=== PATIENT | female | born 1935 | race Caucasian/White ===

== ENCOUNTER 2017-11-10 11:18 | Outpatient (CLI) | payer MEDICARE, OTHER | END 2017-11-10 11:19 | disposition short-term general hospital (02) | LOC: EMS 11:18 | PROVIDERS: ATTEND Surgery | DX: R55 Syncope and collapse (principal); M54.5 Low back pain | CPT/HCPCS: A0425; A0427; A0888 ==

== ENCOUNTER 2018-01-31 11:47 | Outpatient (CLI) | payer MEDICARE, OTHER | END 2018-01-31 11:48 | disposition short-term general hospital (02) | LOC: EMS 11:47 | PROVIDERS: ATTEND Surgery | DX: R53.1 Weakness (principal); R55 Syncope and collapse | CPT/HCPCS: A0425; A0429; A0888 ==

== ENCOUNTER 2019-08-31 21:13 | Outpatient (CLI) | payer MEDICARE, OTHER | END 2019-08-31 21:14 | disposition critical access hospital (66) | LOC: EMS 21:13 | PROVIDERS: ATTEND Surgery | DX: R53.1 Weakness (principal); R41.0 Disorientation, unspecified | CPT/HCPCS: A0425; A0427 ==

== ENCOUNTER 2019-08-31 21:41 | Emergency (ER) | payer MEDICARE, OTHER ==
--- NOTE | 2019-08-31 22:14 | ED Physician Documentation ---
History of Present Illness - Stated complaint Stated Complaint: GLF - Chief complaint Chief Complaint: General - History obtained from History obtained from: Patient, Family, EMS - History of Present Illness Timing: Yesterday Pain level now: 0 - Additonal information Additional information: patient has dementia and thus limited ability to provide reliable HPI/ROS. Per EMS report and ED RN's d/w family, patient had a fall today, and has been exhibiting decreased activity since yesterday, spending more time in bed than her baseline and eating/drinking less than usual. Patient is awake, alert, oriented x 2 on my exam. She does not know why she is in ED and she denies feeling pain or any other symptoms. When I ask her if there's anything unusual that she is experiencing right now, she says "that I'm in the hospital". she does not recall falling nor the events that resulted in her being in the ED at this time Review of Systems Cardiac: denies: Chest pain / pressure, Palpitations Respiratory: denies: Dyspnea, Cough GI: denies: Abdominal Pain, Nausea, Vomiting : denies: Dysuria, Frequency Neurologic: denies: Generalized weakness, Focal weakness, Numbness PD PAST MEDICAL HISTORY - Past Medical History Past Medical History: Yes Cardiovascular: High cholesterol Neuro: Dementia Endocrine/Autoimmune: HyPOthyroidism - Present Medications Home Medications: Ambulatory Orders Medication Instructions Recorded Confirmed Aspirin [[place] Aspirin EC] 81 mg DAILY 08/31/19 08/31/19 Donepezil [Aricept] 5 mg DAILY 08/31/19 08/31/19 Levothyroxine Sodium [Synthroid] 100 mcg DAILY 08/31/19 08/31/19 Simvastatin 40 mg DAILY 08/31/19 08/31/19 Venlafaxine HCl [Venlafaxine HCl 150 mg DAILY 08/31/19 08/31/19 ER] Nitrofurantoin [Macrobid] 100 mg PO DAILY #7 capsule 09/01/19 - Allergies Allergies/Adverse Reactions: Allergies Allergy/AdvReac Type Severity Reaction Status Date / Time No Known Drug Allergies Allergy Verified 08/31/19 21:49 - Living Situation Living Situation: reports: With family Living Arrangement: reports: At home PD ED PE NORMAL - Vitals Vital signs reviewed: Yes - General General: No acute distress, Well developed/nourished, Other (awake, alert, orietned x 2 (does not know year). pleasant, conversant, NAD) - HEENT HEENT: Atraumatic, PERRL, EOMI, Moist mucous membranes - Neck Neck: No bony TTP - Cardiac Cardiac: RRR, No murmur - Respiratory Respiratory: No respiratory distress, Clear bilaterally - Abdomen Abdomen: Soft, Non tender - Derm Derm: Normal color, Warm and dry - Extremities Extremities: No edema - Neuro Neuro: artificial inseminator 2-12 intact, No motor deficit, No sensory deficit, Normal speech Eye Opening: Spontaneous Motor: Obeys Commands Verbal: Confused GCS Score: 14 Results - Vitals Vitals: Vital Signs - 24 hr 08/31/19 09/01/19 21:46 01:56 Temperature 35.5 C L 37.0 C Heart Rate 83 85 Respiratory 18 16 Rate Blood Pressure 138/75 H 134/66 H O2 Saturation 98 100 - Labs Labs: Laboratory Tests 08/31/19 08/31/19 08/31/19 21:50 21:50 21:50 WBC 9.7 RBC 5.00 Hgb 15.1 Hct 46.9 MCV 93.8 MCH 30.2 MCHC 32.2 RDW 13.7 Plt Count 307 MPV 9.5 Neut # (Auto) 7.1 H Lymph # (Auto) 1.9 [place] # (Auto) 0.5 Eos # (Auto) 0.1 Baso # (Auto) 0.1 Absolute Nucleated RBC 0.00 Nucleated RBC % 0.0 Sodium 140 Potassium 4.0 Chloride 105 Carbon Dioxide 24 Anion Gap 11.0 BUN 21 H Creatinine 0.9 Estimated GFR (MDRD) 60 L Glucose 158 H Lactic Acid Calcium 9.0 Total Bilirubin 0.7 AST 17 ALT < 10 L Alkaline Phosphatase 72 Total Creatine Kinase 24 CK-MB (CK-2) 1.1 Total Protein 7.1 Albumin 3.8 Globulin 3.3 Albumin/Globulin Ratio 1.2 Lipase 20 L Urine Color Urine Clarity Urine pH Ur Specific [place] Urine Protein Urine Glucose (UA) Urine Ketones Urine Occult Blood Urine Nitrite Urine Bilirubin Urine Urobilinogen Ur Leukocyte Esterase Urine RBC Urine WBC Ur Squamous Epith Cells Urine Bacteria Ur Microscopic Review Urine Culture Comments 08/31/19 08/31/19 22:50 23:45 WBC RBC Hgb Hct MCV MCH MCHC RDW Plt Count MPV Neut # (Auto) Lymph # (Auto) [place] # (Auto) Eos # (Auto) Baso # (Auto) Absolute Nucleated RBC Nucleated RBC % Sodium Potassium Chloride Carbon Dioxide Anion Gap BUN Creatinine Estimated GFR (MDRD) Glucose Lactic Acid 2.5 H Calcium Total Bilirubin AST ALT Alkaline Phosphatase Total Creatine Kinase CK-MB (CK-2) Total Protein Albumin Globulin Albumin/Globulin Ratio Lipase Urine Color YELLOW Urine Clarity HAZY Urine pH 7.0 Ur Specific [place] 1.020 Urine Protein TRACE Urine Glucose (UA) NEGATIVE Urine Ketones NEGATIVE Urine Occult Blood NEGATIVE Urine Nitrite POSITIVE H Urine Bilirubin NEGATIVE Urine Urobilinogen 0.2 (NORMAL) Ur Leukocyte Esterase SMALL H Urine RBC 0-5 Urine WBC 6-10 H Ur Squamous Epith Cells FEW Squamous Urine Bacteria Many H Ur Microscopic Review INDICATED Urine Culture Comments INDICATED PD MEDICAL DECISION MAKING - ED course Complexity details: reviewed results, re-evaluated patient, considered differential, d/w patient Departure - Departure Disposition: 01 Home, Self Care Clinical Impression: Urinary tract infection Qualifiers: Urinary tract infection type: acute cystitis Hematuria presence: without hematuria Qualified Code(s): N30.00 - Acute cystitis without hematuria Condition: Good Instructions: ED UTI Cystitis Female Follow-Up: Agustín Benson DO [Primary Care Provider] - Within 1 week Prescriptions: Nitrofurantoin [Macrobid] 100 mg PO DAILY #7 capsule Discharge Date/Time: 09/01/19 01:56
[2019-08-31] MEDS: SODIUM CHLORIDE 0.9% 1,000 ML IV STA (22:33)
[2019-08-31 22:48] LABS: BASOPHILS # (AUTO) 0.1 10^3/uL (0.0-0.1); BASOPHILS % (AUTO) 0.6 %; EOSINOPHILS # (AUTO) 0.1 10^3/uL (0.0-0.7); EOSINOPHILS % (AUTO) 0.7 %; HGB - HEMOGLOBIN 15.1 g/dL (12.0-16.0); LYMPHOCYTES # (AUTO) 1.9 10^3/uL (1.5-3.5); LYMPHOCYTES % (AUTO) 19.4 %; MEAN CORPUSCULAR HEMOGLOBIN 30.2 pg (27.0-31.0); MEAN CORPUSCULAR HGB CONC 32.2 g/dL (32.0-36.0); MEAN CORPUSCULAR VOLUME 93.8 fL (81.0-99.0); MEAN PLATELET VOLUME 9.5 fL (7.9-10.8); MONOCYTES # (AUTO) 0.5 10^3/uL (0.0-1.0); MONOCYTES % (AUTO) 5.2 %; NEUTROPHILS # (AUTO) 7.1 10^3/uL (1.5-6.6); NEUTROPHILS % (AUTO) 73.7 %; PLT - PLATELET COUNT 307 10^3/uL (130-450); RED CELL DISTRIBUTION WIDTH 13.7 % (12.0-15.0); WHITE BLOOD COUNT 9.7 x10^3/uL (4.8-10.8)
[2019-08-31 23:03] LABS: ALBUMIN 3.8 g/dL (3.2-5.5); ALBUMIN/GLOBULIN RATIO 1.2 (1.0-2.2); ALKALINE PHOSPHATASE 72 IU/L (42-121); ALT ALANINE AMINOTRANSFERASE < 10 IU/L (10-60); AST ASPARTATE AMINOTRANSFERASE 17 IU/L (10-42); BILIRUBIN,TOTAL 0.7 mg/dL (0.2-1.0); BUN - BLOOD UREA NITROGEN 21 mg/dL (6-20); CARBON DIOXIDE - CO2 24 mmol/L (21-32); CHLORIDE 105 mmol/L (101-111); CK- CREATINE KINASE 24 IU/L (22-269); CREATININE 0.9 mg/dL (0.4-1.0); GLUCOSE 158 mg/dL (70-100); LIPASE 20 U/L (22-51); SODIUM 140 mmol/L (135-145); TOTAL PROTEIN 7.1 g/dL (6.7-8.2)
[2019-08-31 23:58] LABS: BILIRUBIN,URINE NEGATIVE (NEGATIVE); GLUCOSE, URINE (UA) NEGATIVE (NEGATIVE); KETONES,URINE (UA) NEGATIVE (NEGATIVE); LEUKOCYTE ESTERASE, URINE SMALL (NEGATIVE); NITRITE,URINE POSITIVE (NEGATIVE); OCCULT BLOOD,URINE NEGATIVE (NEGATIVE); PROTEIN,URINE TRACE mg/dL (NEGATIVE); UROBILINOGEN,URINE 0.2 (NORMAL) E.U./dL (NORMAL)
[2019-08-31 23:59] LABS: CLARITY,URINE HAZY (CLEAR)
[2019-09-01 00:03] LABS: BACTERIA,URINE Many /HPF (None Seen); RBC,URINE 0-5 /HPF (0-5); SQUAMOUS EPITHELIAL CELL,UR FEW Squamous (<= Few)
[2019-09-01] MEDS: cefTRIAXone 1 GM in SODIUM CHLORIDE 0.9% MINIBAG 100 ML IV STA (00:32)
[2019-09-01 02:03] VITALS: BP 134/66
== END 2019-09-01 01:56 | disposition home or self-care (01) ==
LOC: EDUNIT# → ED 21:41
DX: N30.00 Acute cystitis without hematuria (principal); F03.90 Unspecified dementia, unspecified severity, without behavioral disturbance, psychotic disturbance, mood disturbance, and anxiety; Z91.81 History of falling; Z79.82 Long term (current) use of aspirin
CPT/HCPCS: 36415; 80053; 81001; 81003; 82550; 82553; 83605; 83690; 85025; 87086; 87181; 96361; 96365; 99284

== ENCOUNTER 2020-03-13 13:44 | Outpatient (CLI) | payer MEDICARE, OTHER | END 2020-03-13 13:45 | disposition home or self-care (01) | LOC: LAB 13:44 | PROVIDERS: ATTEND Family Medicine | DX: R53.83 Other fatigue (principal) | CPT/HCPCS: 36415; 85379 ==

== ENCOUNTER 2020-03-14 15:14 | Outpatient (CLI) | payer MEDICARE, OTHER ==
--- NOTE | 2020-03-14 16:13 | XRAY Report ---
PROCEDURE: Chest 2 View X-Ray INDICATIONS: ABNORMAL COAGULATION PROFILE TECHNIQUE: 2 view(s) of the chest. COMPARISON: None. FINDINGS: Surgical changes and devices: None. Lungs and pleura: No pleural effusions or pneumothorax. Lungs are clear. Mediastinum: Mediastinal contours are normal. Heart size is normal. Bones and chest wall: No suspicious bony abnormalities. Soft tissues appear unremarkable. IMPRESSION: Chest without acute cardiopulmonary abnormalities. Reviewed by: Palmer Trimble MD on 03/14/2020 4:11 PM PST Approved by: Palmer Trimble MD on 03/14/2020 4:11 PM PST Station ID: [id number]
== END 2020-03-14 15:15 | disposition home or self-care (01) ==
LOC: DI 15:14
PROVIDERS: ATTEND Internal Medicine
DX: R79.1 Abnormal coagulation profile (principal)
CPT/HCPCS: 71046

== ENCOUNTER 2020-03-15 17:09 | Outpatient (CLI) | payer MEDICARE, OTHER ==
[2020-03-15] MEDS ORDERED: IOVERSOL 320 100 ML VIAL IVP ONE (17:27)
[2020-03-15] MEDS: IOVERSOL 320 100 ML VIAL IVP ONE (18:27)
--- NOTE | 2020-03-15 19:37 | CT Report ---
PROCEDURE: ANGIO CHEST W/WO INDICATIONS: HYPOXEMIA CONTRAST: IV CONTRAST: Optiray 320 ml: 80 PO CONTRAST: *NO PO CONTRAST TECHNIQUE: After the administration of intravenous contrast, 2 mm thick sections acquired from the pulmonary api liliana to the posterior costophrenic angles. 3-dimensional maximum intensity projection (MIP) coronal a nd sagittal reformats were then acquired through the thorax. For radiation dose reduction, the follow ing was used: automated exposure control, adjustment of mA and/or kV according to patient size. COMPARISON: CXR 03/14/2020. FINDINGS: Image quality: Fair. Respiratory motion. Pulmonary arteries: Pulmonary arteries are normal in size, and demonstrate no intraluminal filling d efects to suggest central pulmonary embolism. Lungs and pleura: Right lower lobe pulmonary nodule measuring 4 mm, (6/131). Left upper lobe subpleur al pulmonary nodule measuring 4 mm, (6/122). Calcified granuloma. Mild streaky opacity at the left oma ng base. No pleural effusions or pneumothorax. Central and peripheral airways are patent. Mediastinum: Heart size is normal, without pericardial effusion. No mediastinal or hilar adenopathy . Thoracic aorta is normal in caliber and enhancement. Esophagus is normal in caliber, probable sma ll hiatal hernia. Bones and chest wall: No suspicious bony lesions. Chronic appearing L1 compression fracture. Ribs a nd thoracic spine appear intact throughout. Thyroid appears atrophic. No axillary or supraclavicula r adenopathy. Abdomen: Visualized upper abdominal solid organs appear normal in the early arterial phase of enhanc ement. IMPRESSION: Image quality is somewhat dictated by respiratory motion. 1. No central pulmonary embolism. 2. Mild atelectasis at the left lung base. No pleural effusion. 3. A few pulmonary nodules measuring 4 mm or less. 4. Chronic appearing L1 compression fracture. Reviewed by: Kurtis Lemus MD on 03/15/2020 7:36 PM PST Approved by: Kurtis Lemus MD on 03/15/2020 7:36 PM PST Station ID: [id number]
== END 2020-03-15 17:10 | disposition home or self-care (01) ==
LOC: DI 17:09
PROVIDERS: ATTEND Family Medicine
DX: J98.11 Atelectasis (principal); R91.8 Other nonspecific abnormal finding of lung field
CPT/HCPCS: 71275; Q9967

== ENCOUNTER 2020-03-23 18:24 | Outpatient (CLI) | payer MEDICARE, OTHER | END 2020-03-23 18:25 | disposition critical access hospital (66) | LOC: EMS 18:24 | PROVIDERS: ATTEND Surgery | DX: R55 Syncope and collapse (principal) | CPT/HCPCS: A0425; A0427 ==

== ENCOUNTER 2020-03-23 18:56 | Inpatient (IN) | payer MEDICARE, OTHER ==
[2020-03-23 19:22] LABS: BASOPHILS # (AUTO) 0.1 10^3/uL (0.0-0.1); BASOPHILS % (AUTO) 0.6 %; EOSINOPHILS # (AUTO) 0.2 10^3/uL (0.0-0.7); EOSINOPHILS % (AUTO) 1.9 %; HGB - HEMOGLOBIN 13.4 g/dL (12.0-16.0); LYMPHOCYTES # (AUTO) 1.7 10^3/uL (1.5-3.5); LYMPHOCYTES % (AUTO) 16.1 %; MEAN CORPUSCULAR HEMOGLOBIN 30.1 pg (27.0-31.0); MEAN CORPUSCULAR HGB CONC 32.8 g/dL (32.0-36.0); MEAN CORPUSCULAR VOLUME 91.7 fL (81.0-99.0); MEAN PLATELET VOLUME 8.7 fL (7.9-10.8); MONOCYTES # (AUTO) 0.6 10^3/uL (0.0-1.0); MONOCYTES % (AUTO) 5.2 %; NEUTROPHILS # (AUTO) 8.1 10^3/uL (1.5-6.6); NEUTROPHILS % (AUTO) 75.7 %; PLT - PLATELET COUNT 226 10^3/uL (130-450); RED BLOOD COUNT 4.45 10^6/uL (4.20-5.40); RED CELL DISTRIBUTION WIDTH 14.2 % (12.0-15.0); WHITE BLOOD COUNT 10.7 x10^3/uL (4.8-10.8)
[2020-03-23] MEDS ORDERED: SODIUM CHLORIDE 0.9% 1,000 ML IV STA ×2 (19:27→20:16)
[2020-03-23 19:35] LABS: ALBUMIN 3.6 g/dL (3.2-5.5); ALBUMIN/GLOBULIN RATIO 1.2 (1.0-2.2); BILIRUBIN,TOTAL 0.5 mg/dL (0.2-1.0); CALCIUM 8.9 mg/dL (8.5-10.3); CREATININE 0.9 mg/dL (0.4-1.0); TOTAL PROTEIN 6.6 g/dL (6.7-8.2)
--- NOTE | 2020-03-23 19:43 | ED Physician Documentation ---
History of Present Illness - Stated complaint Stated Complaint: DIZZY, NAUSEA, LOC - Chief complaint Chief Complaint: Neuro - History obtained from History obtained from: EMS - History of Present Illness Timing: Prior to arrival - Additonal information Additional information: 84-year-old female is brought to the emergency department for evaluation of a near syncopal event. At baseline the patient has dementia and is a very poor historian. Right now she reports that she knows she is at the hospital but does not know why. She denies that she has chest pain abdominal pain shortness of breath. I have spoken with the patient's granddaughter and care provider Betina. She reports to me that for nearly 3 years the patient has been having near syncopal events now with increasing frequency. These always occur after or during exertion. Betina denies that the patient is reporting chest pain or shortness of breath but she has learned to tell the signs that she is about to collapse. She denies that the patient has had any lapses in consciousness. She has not had any falls. Patient has been evaluated by her primary care provider for the recurrent near syncope recently. Undergo CT angio of the chest to evaluate for central pulmonary embolus. None was found. Granddaughter reports that the patient is ambulatory at baseline and typically uses a walker. Past medical history: Hypothyroidism, depression anxiety, hyperlipidemia, dementia. Meds: Synthroid 100 mics daily, statin 40 mg daily, venlafaxine 150 mg daily, donezepil 5 mg daily, aspirin 81 mg daily Review of Systems Unable to obtain: Dementia, Other (as per HPI; reviewed with caregiver betina) PD PAST MEDICAL HISTORY - Past Medical History Cardiovascular: High cholesterol Neuro: Dementia Endocrine/Autoimmune: HyPOthyroidism - Present Medications Home Medications: Ambulatory Orders Medication Instructions Recorded Confirmed Aspirin [[place] Aspirin EC] 81 mg DAILY 08/31/19 03/23/20 Donepezil [Aricept] 5 mg DAILY 08/31/19 03/23/20 Levothyroxine Sodium [Synthroid] 100 mcg DAILY 08/31/19 03/23/20 Simvastatin 40 mg DAILY 08/31/19 03/23/20 Venlafaxine HCl [Venlafaxine HCl 150 mg DAILY 08/31/19 03/23/20 ER] - Allergies Allergies/Adverse Reactions: Allergies Allergy/AdvReac Type Severity Reaction Status Date / Time No Known Drug Allergies Allergy Verified 08/31/19 21:49 - Social History Does the pt smoke?: No Smoking Status: Never smoker PD ED PE EXPANDED - General General: Alert, No acute distress - HEENT HEENT: PERRL - Neck Neck: Supple w/out meningeal sx. No: No tenderness - Cardiac Cardiac: Regular Rate, Regular Rhythm, Radial strong equal, Pedal strong equal, Cap refill < 2 sec. No: Murmur Present - Respiratory Respiratory: Clear to ausultation yeny. No: Distress, Labored - Abdomen Abdomen: Normal Bowel sounds. No: Tender to palpation - Derm Derm: Normal color, Warm and dry. No: Rash - Extremities Extremities: Normal - Neuro Neuro: Confused, CNII-XII intact, Normal speech - GCS Eye Opening: Spontaneous Motor: Obeys Commands Verbal: Oriented Total: 15 Results - Vitals Vitals: Vital Signs - 24 hr 03/23/20 03/23/20 03/23/20 18:58 19:16 20:18 Temperature 36.4 C L 36.4 C L Heart Rate 75 75 Heart Rate [ 77 Supine] Respiratory 18 18 Rate Blood Pressure 147/78 H 147/78 H Blood Pressure 131/67 H [Sitting] Blood Pressure 130/119 H [Standing] Blood Pressure 149/65 H [Supine] O2 Saturation 98 96 03/23/20 21:01 Temperature Heart Rate 83 Heart Rate [ Supine] Respiratory 16 Rate Blood Pressure 128/50 L Blood Pressure [Sitting] Blood Pressure [Standing] Blood Pressure [Supine] O2 Saturation 98 Oxygen O2 Source Room air - EKG (time done) 1857 Rate: Rate (enter#) (77) Rhythm: NSR [place]: LAD Intervals: Normal NC QRS: Normal Ischemia: Normal ST segments Compare to prior EKG: Old EKG unavailable Computer interpretation: Agree with computer - Labs Labs: Laboratory Tests 03/23/20 03/23/20 03/23/20 19:14 19:14 19:14 WBC 10.7 RBC 4.45 Hgb 13.4 Hct 40.8 MCV 91.7 MCH 30.1 MCHC 32.8 RDW 14.2 Plt Count 226 MPV 8.7 Neut # (Auto) 8.1 H Lymph # (Auto) 1.7 [place] # (Auto) 0.6 Eos # (Auto) 0.2 Baso # (Auto) 0.1 Absolute Nucleated RBC 0.00 Nucleated RBC % 0.0 Sodium 138 Potassium 3.9 Chloride 103 Carbon Dioxide 24 Anion Gap 11.0 BUN 30 H Creatinine 0.9 Estimated GFR (MDRD) 60 L Glucose 159 H Lactic Acid Calcium 8.9 Total Bilirubin 0.5 AST 20 ALT 17 Alkaline Phosphatase 52 Troponin I High Sens 4.9 Total Protein 6.6 L Albumin 3.6 Globulin 3.0 Albumin/Globulin Ratio 1.2 Lipase 19 L TSH Urine Color Urine Clarity Urine pH Ur Specific [place] Urine Protein Urine Glucose (UA) Urine Ketones Urine Occult Blood Urine Nitrite Urine Bilirubin Urine Urobilinogen Ur Leukocyte Esterase Urine RBC Urine WBC Urine WBC Clumps Ur Squamous Epith Cells Urine Bacteria Ur Microscopic Review Urine Culture Comments 03/23/20 03/23/20 03/23/20 19:14 19:14 19:47 WBC RBC Hgb Hct MCV MCH MCHC RDW Plt Count MPV Neut # (Auto) Lymph # (Auto) [place] # (Auto) Eos # (Auto) Baso # (Auto) Absolute Nucleated RBC Nucleated RBC % Sodium Potassium Chloride Carbon Dioxide Anion Gap BUN Creatinine Estimated GFR (MDRD) Glucose Lactic Acid 1.3 Calcium Total Bilirubin AST ALT Alkaline Phosphatase Troponin I High Sens Total Protein Albumin Globulin Albumin/Globulin Ratio Lipase TSH 3.17 Urine Color YELLOW Urine Clarity HAZY Urine pH 6.0 Ur Specific [place] 1.025 Urine Protein NEGATIVE Urine Glucose (UA) NEGATIVE Urine Ketones NEGATIVE Urine Occult Blood MODERATE H Urine Nitrite POSITIVE H Urine Bilirubin NEGATIVE Urine Urobilinogen 0.2 (NORMAL) Ur Leukocyte Esterase TRACE H Urine RBC 6-10 H Urine WBC >25 H Urine WBC Clumps PRESENT Ur Squamous Epith Cells RARE Squamous Urine Bacteria Many H Ur Microscopic Review INDICATED Urine Culture Comments INDICATED - Rads (name of study) CT head Radiology: Final report received (No mass or hemorrhage found but the ventricles are large in size when compared to the proportionally smaller cortical sulci and basilar since turned. 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 No suspicious bony lesions. Visualized ribs appear intact) PD MEDICAL DECISION MAKING - ED course Complexity details: reviewed results ED course: 84-year-old female is brought into the emergency department for evaluation of increasing episodes of near syncope without loss of consciousness over the last week. Most of this history was obtained by the patient's granddaughter as the patient has dementia as baseline. The patient underwent a CT angio of the chest last week and it did not show any large central pulmonary embolus. There was findings suggestive of atelectasis in the left lower lobe. The granddaughter reports that patient has been having near syncopal events every day for the last week and this always occurs after exertion. Here in the emergency department we review her labs and find that there is no leukocytosis elevated lactic acid. She is noted to be dehydrated with BUN of 30. We did do bedside interrogation of her inferior vena cava and it was found to be point 6 2 cm likely indicating that she has depleted 2-1/2 to 3 L. She was given 2 L of IV fluids here in the emergency department. The most significant findings on her evaluation today is the finding of a new left lower lobe pneumonia on chest x-ray. This is in comparison to the CT scan completed 1 week ago. In addition to that she does have a urinary tract infection. The urine obtained today was via catheterization. Patient is not septic. She has no leukocytosis, fever or elevation in lactic acid. She is normotensive and otherwise hemodynamically stable Her PSI score is 84 Which is a risk class of 4. The recommendation is for inpatient hospitalization and observation. I did discuss our clinical findings on exam today with the patient's granddaughter. She indicates to me that the patient is a full code including CPR and intubation. I have discussed this case with Dr. Yanez who agrees to bring the patient in for further evaluation and treatment of her pneumonia urinary tract infection and dehydration with near syncope Departure - Departure Disposition: ED Place in Observation Clinical Impression: Cystitis, Near syncope, Dehydration Pneumonia Qualifiers: Pneumonia type: due to unspecified organism Laterality: left Lung location: lower lobe of lung Qualified Code(s): J18.9 - Pneumonia, unspecified organism Dementia Qualifiers: Dementia type: unspecified type Dementia behavioral disturbance: without behavioral disturbance Qualified Code(s): F03.90 - Unspecified dementia without behavioral disturbance
[2020-03-23 19:50] LABS: BILIRUBIN,URINE NEGATIVE (NEGATIVE); GLUCOSE, URINE (UA) NEGATIVE (NEGATIVE); KETONES,URINE (UA) NEGATIVE (NEGATIVE); LEUKOCYTE ESTERASE, URINE TRACE (NEGATIVE); NITRITE,URINE POSITIVE (NEGATIVE); OCCULT BLOOD,URINE MODERATE (NEGATIVE); PROTEIN,URINE NEGATIVE (NEGATIVE); UROBILINOGEN,URINE 0.2 (NORMAL) E.U./dL (NORMAL)
[2020-03-23 20:05] LABS: CLARITY,URINE HAZY (CLEAR)
[2020-03-23 20:06] LABS: BACTERIA,URINE Many /HPF (None Seen); SQUAMOUS EPITHELIAL CELL,UR RARE Squamous (<= Few); WBC CLUMPS,URINE PRESENT
--- NOTE | 2020-03-23 20:24 | XRAY Report ---
PROCEDURE: Shoulder 2 View LT INDICATIONS: pain TECHNIQUE: 3 views of the shoulder were acquired. COMPARISON: None. FINDINGS: Bones: No fractures or dislocations. No suspicious bony lesions. Visualized ribs appear intact. Soft tissues: No suspicious soft tissue calcifications. IMPRESSION: Mild AC joint osteoarthritis. No fracture or dislocation found. Reviewed by: Felipe Sweeney MD on 03/23/2020 8:22 PM [facility] Approved by: Felipe Sweeney MD on 03/23/2020 8:22 PM [facility] Station ID: [id number]
--- NOTE | 2020-03-23 20:27 | CT Report ---
PROCEDURE: HEAD WO INDICATIONS: near syncope TECHNIQUE: Noncontrast 4.5 mm thick angled axial sections acquired from the foramen magnum to the vertex. For r adiation dose reduction, the following was used: automated exposure control, adjustment of mA and/or kV according to patient size. COMPARISON: None. FINDINGS: Image quality: Excellent. CSF spaces: Basal cisterns are patent. No extra-axial fluid collections. Ventricles are mildly enl arged in size and shape when compared to the overlying cortical sulci.. Brain: No midline shift. No intracranial masses or hemorrhage. Lao-white matter interface is norm al. Skull and face: Calvarium and visualized facial bones are intact, without suspicious lesions. Sinuses: Visualized sinuses and mastoids are clear. IMPRESSION: No mass or hemorrhage found but the ventricles are large in size when compared to the pr oportionately smaller cortical sulci and basilar cisterns. This may indicate communicating hydrocepha kayla, and also partially obstructive hydrocephalus conceivably could be present. Follow-up by elective MR scanning may be warranted. It would be especially beneficial if a prior head CT or brain MRI coul d be obtained for review to establish chronicity of this appearance. Reviewed by: Felipe Sweeney MD on 03/23/2020 8:25 PM PST Approved by: Felipe Sweeney MD on 03/23/2020 8:25 PM PST Station ID: [id number]
--- NOTE | 2020-03-23 20:28 | XRAY Report ---
PROCEDURE: Chest 1 View X-Ray INDICATIONS: Chest Pain TECHNIQUE: One view of the chest was acquired. COMPARISON: FINDINGS: Surgical changes and devices: None. Lungs and pleura: No pleural effusions or pneumothorax. Lungs are abnormal with what appears to be a left lung base pneumonia pattern. Mediastinum: Mediastinal contours appear normal. Heart size is normal. Bones and chest wall: No suspicious bony lesions. Overlying soft tissues appear unremarkable. IMPRESSION: Left lower lobe pneumonia with asymmetric opacification of the retrocardiac left lung base. Reviewed by: Felipe Sweeney MD on 03/23/2020 8:27 PM PST Approved by: Felipe Sweeney MD on 03/23/2020 8:27 PM PST Station ID: [id number]
[2020-03-23] MEDS ORDERED: levoFLOXacin 750 MG/150 ML 750 MG/150 ML BAG IV STA (21:11)
[2020-03-23] MEDS ORDERED: ACETAMINOPHEN 325 MG TABLET PO PRN (21:17)
[2020-03-23] MEDS ORDERED: ONDANSETRON ODT 4 MG TABLET TL PRN (21:17)
[2020-03-23] MEDS ORDERED: SODIUM CHLORIDE FLUSH 0.9% 10 ML SYRINGE IVP PRN (21:17)
--- NOTE | 2020-03-23 21:25 | HISTORY & PHYSICAL EXAMINATION ---
Chief Complaint - Chief Complaint Chief Complaint: Almost passed out History of Present Illness - Admitted From Admitted From:: Home - History Obtained From Records Reviewed: Yes History obtained from: ER Provider, Family, EMR Exam Limitations: Patient has dementia and is a poor historian. - History of Present Illness HPI Comment/Other: This is a 84-year-old female with a past medical history significant for hypothyroidism, dementia who presents today from home after she nearly passed out. Most of the history is obtained from her granddaughter, Betina and the ER provider, given the patient has advanced dementia and is a poor historian. Betina tells me that over the past few years, her grandmother has been having episodes of near syncope. This has progressed over the past few months and so they have been seeking medical attention on an outpatient basis. She states they saw her primary care provider and underwent a CT scan. She states that during one of her office visits, she was found to have some hypoxia with ambulation. She states that her doctor was planning to order an ultrasound of her legs to evaluate for blood clots. Betina tells me that the patient gets overheated at times and then gets some heavy breathing before feeling like she is going to pass out. She states she has never passed out. The patient does not complain of any dyspnea or chest pain. She has not had any fevers. She tel ls me she has been diagnosed with multiple urinary tract infections in the past. The patient today states that she knows she is here at [facility]. She is not sure exactly why she is here. She states she does feel dizzy and lightheaded at times. She denies ever passing out. Reports no chest pain or dyspnea. Denies nausea, vomiting, abdominal pain. Reports no dysuria, urgency, frequency. She reports feeling fatigued. Denies any weakness. In the emergency department, she was found to be afebrile with temperature of 36.4 C. Her heart rate was in the 70s. Blood pressure is 147/78. Orthostatics were negative. She was not tachypneic and saturating well on room air. Labs were unremarkable except for BUN of 30. Her urinalysis did reveal pyuria with positive nitrites and leukocyte Estrace. Her EKG did not suggest ischemia and her initial troponin was negative. Chest x-ray was concerning for possible left lower lobe infiltrate. CT angiogram from last week showed no pulm onary embolism but did reveal mild left lower lobe atelectasis. She was given Levaquin IV in the emergency department and 2 L of IV fluid. Given her pneumonia severity index score was 94, medicine was consulted for admission. I did discuss goals of care with the patient's grandchild, Betina. She states the patient is a full code for the time being but she is planning to discuss this with her POA, Jennifer. I did contact Jennifer with me that she is actually a financial power of trust and estates attorney. She states that the patient's son, Leeroy, is her medical power of trust and estates attorney. I asked for Leeroy's number given it is not in the computer but she asked me why I needed. I told her to discuss CODE STATUS of the patient. She states that they have been discussing this and they want to discuss it further with the patient over this weekend as they want to ask her what she would want. This feels the patient would likely want to be DNR. Jennifer also feels the patient can make her own decision regarding CODE STATUS despite her dementia. I did asked the patient if she would want to be a full code and she said no. She would like to be DNR. History - Past Medical History Cardiovascular: reports: High cholesterol Neuro: reports: Dementia Endocrine/Autoimmune: reports: HyPOthyroidism - Family & Social History Family History Comment/Other: Her family tells me the patient has no significant family history. The patient also tells me that her parents were healthy. Living arrangement: At home Living Situation: With family Social History Notes: Patient lives at home with her granddaughter, Betina. Reports no smoking or alcohol use. Meds/Allgy - Home Medications Home Medications: Ambulatory Orders Medication Instructions Recorded Confirmed Aspirin [Mineral Aspirin EC] 81 mg DAILY 08/31/19 03/23/20 Donepezil [Aricept] 5 mg DAILY 08/31/19 03/23/20 Levothyroxine Sodium [Synthroid] 100 mcg DAILY 08/31/19 03/23/20 Simvastatin 40 mg DAILY 08/31/19 03/23/20 Venlafaxine HCl [Venlafaxine HCl 150 mg DAILY 08/31/19 03/23/20 ER] - Allergies Allergies/Adverse Reactions: Allergies Allergy/AdvReac Type Severity Reaction Status Date / Time No Known Drug Allergies Allergy Verified 08/31/19 21:49 Review of Systems - Constitutional Constitutional: reports: Fatigue. denies: Fever, Chills, Weakness, Poor appetite - Ears, Nose & Throat Ears, Nose & Throat: denies: Nasal discharge, Nasal congestion - Cardiovascular Cariovascular: reports: Lightheadedness. denies: Palpitations, Chest pain, Edema, Syncope, Exertional dyspnea, Decr. exercise tolerance - Respiratory Respiratory: denies: Cough, SOB at rest, SOB with exertion - Gastrointestinal Gastrointestinal: denies: Abdominal pain, Diarrhea, Nausea, Vomiting - Genitourinary Genitourinary: denies: Dysuria, Frequency, Urgency - Neurological Neurological: reports: Dizziness. denies: General weakness, Focal weakness, Numbness - All Other Systems All Other Systems: reports: Other (Review of systems is limited given the patient's underlying dementia.) Prior Level of Functionality: She lives with her grandchild, Betina. She ambulates with a walker at baseline. Betina tells me that someone is always with her when she is ambulating due to her risk of fall. She is normally oriented to location when she is at home otherwise she will not know where she is. She does recognize some of her family. She will not know the year or month. Exam - Vital Signs Reviewed Vital Signs: Yes Vital Signs: Vital Signs x48h Temp Pulse Pulse Resp BP BP BP 03/23/20 21:01 83 16 128/50 L 03/23/20 20:18 77 131/67 H 130/119 H 03/23/20 19:16 36.4 C L 75 18 147/78 H 03/23/20 18:58 36.4 C L 75 18 147/78 H BP Pulse Ox 03/23/20 21:01 98 03/23/20 20:18 149/65 H 03/23/20 19:16 96 03/23/20 18:58 98 - Physical Exam General Appearance: positive: No acute distress, Alert Eyes Bilateral: positive: Normal inspection, Conjunctivae nml ENT: positive: ENT inspection nml Neck: positive: Nml inspection Respiratory: positive: No respiratory distress. negative: Wheezes, Rales Cardiovascular: positive: Regular rate & rhythm, No murmur. negative: Tachycardia, Systolic murmur Abdomen: positive: Non-tender, No distention. negative: Tenderness Skin: positive: Warm, Dry Extremities: positive: Full ROM, No pedal edema Neurologic/Psychiatric: positive: Motor nml, Disoriented to time, Other (She knows she is at the hospital but is not sure why. She knows it is March but not what year. She recognizes Thanksgiving was over a week ago and Rajani is next. No focal deficits on exam.). negative: Disoriented to person, Disoriented to place, Facial droop, Slurred/abnml speech Conclusion/Plan - Problem List (1) Left lower lobe pneumonia Conclusion/Plan: Chest x-ray today was concerning for a left lower lobe infiltrate. She had a CT angiogram last week which did show some mild atelectasis in left lung base. She has no white count and is not tachypneic or hypoxic. Given her presentation and x-ray findings, it was felt to be best placed in observation for IV antibiotics and to treat this for possible pneumonia. Her pneumonia severity index is 94. We will place her on Levaquin given she may have a urinary tract infection as well. Follow-up Covid PCR. Monitor respiratory status. (2) Urinary tract infection Conclusion/Plan: Her urinalysis is abnormal with positive nitrates, trace leukocyte Estrace, pyuria, and many bacteria. Although she does not have any symptoms, given her presentation with presyncope and dehydration and given her baseline dementia being a poor historian, we will treat empirically. Prior urine cultures have grown pansensitive E. coli. We will place her on Levaquin for the urinary tract infection as well as pneumonia. Qualifiers: Urinary tract infection type: acute cystitis Hematuria presence: without hematuria Qualified Code(s): N30.00 - Acute cystitis without hematuria (3) Near syncope Conclusion/Plan: Suspect this is likely due to dehydration. This may have been exacerbated by the possible pneumonia and urinary tract infection. Her BUN is mildly elevated and her IVC was quite collapsed per the ER provider. Orthostatics were negative in the emergency department. EKG does not suggest ischemia and troponin is normal. She received 2 L of IV fluids. We will continue her on gentle IV hydration overnight. We will monitor her on telemetry. Trend troponin. Although she has no obvious murmur on exam, will obtain echocardiogram. (4) Hypothyroidism Conclusion/Plan: Continue Synthroid. (5) Dehydration Conclusion/Plan: There is concern for dehydration given her mildly elevated BUN and a collapsible IVC per the ER provider. She received 2 L of IV fluids in the emergency department. Continue her on gentle IV hydration overnight. (6) Dementia Conclusion/Plan: Continue home medications. Qualifiers: Dementia type: unspecified type Dementia behavioral disturbance: without behavioral disturbance Qualified Code(s): F03.90 - Unspecified dementia without behavioral disturbance - Lab Results Lab results reviewed: Yes Fish Bones: 03/23/20 19:14 03/23/20 19:14 - Diagnostic Imaging Results Diagnostic Imaging Results: positive: Final report reviewed - EKG Results EKG Interpreted Independently: Yes EKG Findings: EKG shows sinus rhythm without ST segment changes. Low voltage is noted. Core Measures - Anticipated LOS I expect patient to be DC'd or transferred within 96 hours.: Yes - Issues Hospital Issues and Management Plan: 84-year-old female with history of dementia presents with ongoing near syncope found to be dehydrated with a possible urinary tract infection and pneumonia in the emergency department. She does not appear to be septic. She is also not hypoxic. Will place in observation for IV antibiotics and IV fluids. - DVT/VTE - Prophylaxis VTE/DVT Device ordered at admit?: Yes VTE/DVT Prophylaxis med ordered at admit?: Yes
[2020-03-23] MEDS ORDERED: LACTATED RINGERS 1,000 ML IV SCH (22:00)
[2020-03-23 22:24] LABS: C. PNEUMONIAE- RESP PCR PANEL NOT DETECTED
[2020-03-24] MEDS: SODIUM CHLORIDE FLUSH 0.9% 10 ML SYRINGE IVP SCH ×3 (00:37→16:53)
[2020-03-24] MEDS: ZINC OXIDE 20% OINT 30 GM TUBE TOP PRN ×2 (04:17→06:30)
[2020-03-24 05:48] LABS: BASOPHILS % (AUTO) 0.5 %; EOSINOPHILS % (AUTO) 0.5 %; HGB - HEMOGLOBIN 11.2 g/dL (12.0-16.0); LYMPHOCYTES # (AUTO) 1.2 10^3/uL (1.5-3.5); LYMPHOCYTES % (AUTO) 19.1 %; MEAN CORPUSCULAR HEMOGLOBIN 29.5 pg (27.0-31.0); MEAN CORPUSCULAR HGB CONC 31.3 g/dL (32.0-36.0); MEAN CORPUSCULAR VOLUME 94.2 fL (81.0-99.0); MEAN PLATELET VOLUME 9.4 fL (7.9-10.8); MONOCYTES # (AUTO) 0.6 10^3/uL (0.0-1.0); MONOCYTES % (AUTO) 9.2 %; NEUTROPHILS # (AUTO) 4.5 10^3/uL (1.5-6.6); NEUTROPHILS % (AUTO) 70.4 %; PLT - PLATELET COUNT 194 10^3/uL (130-450); RED CELL DISTRIBUTION WIDTH 14.2 % (12.0-15.0); WHITE BLOOD COUNT 6.4 x10^3/uL (4.8-10.8)
[2020-03-24 05:57] LABS: CALCIUM 8.7 mg/dL (8.5-10.3); CREATININE 0.8 mg/dL (0.4-1.0)
[2020-03-24] MEDS: LEVOTHYROXINE 100 MCG TABLET PO SCH (06:27)
[2020-03-24] MEDS: ATORVASTATIN 10 MG TABLET PO SCH (08:21)
[2020-03-24] MEDS: ENOXAPARIN 40 MG/0.4 ML SYRINGE SUBQ SCH (08:21)
[2020-03-24] MEDS: DONEPEZIL 5 MG TABLET PO SCH (08:21)
[2020-03-24] MEDS: ASPIRIN EC 81 MG TABLET PO SCH (08:21)
[2020-03-24] MEDS: VENLAFAXINE ER 75 MG CAPSULE PO SCH (08:21)
[2020-03-24] MEDS: cefTRIAXone 1 GM in SODIUM CHLORIDE 0.9% MINIBAG 100 ML IV SCH (11:05)
[2020-03-24] MEDS: AZITHROMYCIN INJ 500 MG in SODIUM CHLORIDE 0.9% 250 ML IV SCH (11:51)
--- NOTE | 2020-03-24 12:25 | PHARMACY PROGRESS NOTE ---
- Best Possible Medication History Admit Date and Time: 03/23/202116 Processed by: Pharmacy Medication History completed: Yes Patient Interview: Pt unable to participate Secondary Source(s): Spouse/Significant other, Physician records, Pharmacy re cords, Insurance records As the person ultimately responsible for medication therapy, providers are able to order a medication from an existing home medication list in [facility] via the "Reconcile Routine" prior to Confirmation of that medication by support representative. Such practice is discouraged except when the physician, in their clinical judgment, deems that a medical need exists for a medication without regard to previous use.
--- NOTE | 2020-03-24 14:10 | PROVIDER PROGRESS NOTE ---
Assessment/Plan - Problem List (1) Left lower lobe pneumonia Assessment/Plan: 03/24 pt has cough and the patient become some confused, We will switch antibiotics from Levaquin to azithromycin and Rocephin For community acquired pneumonia. Blood culture is pending. COVID-19 PCR is negative (2) Urinary tract infection UA culture show positive for E. coli. Sensitivity study is pending. We will continue Rocephin (3) Near syncope 3 time troponin are negative, patient deny chest pain, palpitation, SOB. EKG review sinus rhythm, echo is pending. It is Not clear etiology for patient's nearly syncope now. (4) Hypothyroidism Conclusion/Plan: Continue Synthroid. (5) Dehydration Conclusion/Plan: 03/24 resolved There is concern for dehydration given her mildly elevated BUN and a collapsible IVC per the ER provider. She received 2 L of IV fluids in the emergency department. Continue her on gentle IV hydration overnight. (6) Dementia Conclusion/Plan: Continue home medications. - Current Meds Current Meds: Current Medications Generic Name Dose Route Start Last Admin Trade Name Halina PRN Reason Stop Dose Admin Aspirin 81 mg 03/24/20 09:00 03/24/20 08:21 Aspirin Ec 81 Mg Tablet PO 81 mg DAILY TIM Administration Atorvastatin Calcium 20 mg 03/24/20 09:00 03/24/20 08:21 Atorvastatin 10 Mg Tablet PO 20 mg DAILY TIM Administration Donepezil HCl 5 mg 03/24/20 09:00 03/24/20 08:21 Donepezil 5 Mg Tablet PO 5 mg DAILY TIM Administration Enoxaparin Sodium 40 mg 03/24/20 09:00 03/24/20 08:21 Enoxaparin 40 Mg/0.4 Ml Syringe SUBQ 40 mg DAILY TIM Administration Azithromycin 500 mg/ Sodium 250 mls @ 250 mls/hr 03/24/20 09:00 03/24/20 11:51 Chloride IV 03/26/20 09:59 250 mls/hr DAILY TIM Administration Ceftriaxone Sodium 1 gm/ 100 mls @ 200 mls/hr 03/24/20 09:00 03/24/20 11:51 Sodium Chloride IV 03/28/20 09:29 Infused DAILY TIM Infusion Levothyroxine Sodium 100 mcg 03/24/20 07:00 03/24/20 06:27 Levothyroxine 100 Mcg Tablet PO 100 mcg QDAC TIM Administration Multi-Ingredient Ointment 1 applic 03/24/20 01:54 03/24/20 06:30 Zinc Oxide 20% Oint 30 Gm Tube TOP 1 applic PRN PRN Administration Skin Care Sodium Chloride 10 ml 03/24/20 01:00 03/24/20 08:21 Sodium Chloride Flush 0.9% 10 Ml Syringe IVP 10 ml 0100,0900,1700 TIM Administration Venlafaxine HCl 150 mg 03/24/20 09:00 03/24/20 08:21 Venlafaxine Er 75 Mg Capsule PO 150 mg DAILY TIM Administration - Lab Result Fish Bone Diagrams: 03/24/20 05:24 03/24/20 05:24 - Additional Planning My Orders: My Active Orders 03/24/20 08:47 CULTURE, BLOOD (NOTE DRAW #) [] Routine 03/24/20 08:58 Blood Culture [CULTURE, BLOOD #2] [] Urgent 03/24/20 09:00 Azithromycin Inj [Zithromax Inj] 500 mg Sodium Chloride 0.9% [Normal Saline 0.9%] 250 ml IV DAILY cefTRIAXone [Rocephin] 1 gm Sodium Chloride 0.9% Minibag [Normal Saline 0.9% Minibag] 100 ml IV DAILY 03/24/20 17:00 Saccharomyces Boulardii [Florastor] 250 mg PO BIDWM 03/25/20 05:00 BMP - BASIC METABOLIC PANEL [CHEM] DAILYLAB CBC - COMP BLD CT W/AUTO DIFF [HEME] DAILYLAB MAGNESIUM [CHEM] DAILYLAB 03/26/20 05:00 BMP - BASIC METABOLIC PANEL [CHEM] DAILYLAB CBC - COMP BLD CT W/AUTO DIFF [HEME] DAILYLAB 03/27/20 05:00 BMP - BASIC METABOLIC PANEL [CHEM] DAILYLAB CBC - COMP BLD CT W/AUTO DIFF [HEME] DAILYLAB 03/28/20 05:00 BMP - BASIC METABOLIC PANEL [CHEM] DAILYLAB CBC - COMP BLD CT W/AUTO DIFF [HEME] DAILYLAB Subjective - Subjective Nursing Reports: Confused Objective Vital Signs: Vital Signs - 24 hr 03/23/20 03/23/20 03/23/20 18:58 19:16 20:18 Temperature 36.4 C L 36.4 C L Heart Rate 75 75 Heart Rate [ Brachial] Heart Rate [ 77 Supine] Respiratory 18 18 Rate Blood Pressure 147/78 H 147/78 H Blood Pressure [Right Brachial artery] Blood Pressure 131/67 H [Sitting] Blood Pressure 130/119 H [Standing] Blood Pressure 149/65 H [Supine] O2 Saturation 98 96 03/23/20 03/23/20 03/23/20 21:01 22:03 22:10 Temperature 36.5 C Heart Rate 83 85 Heart Rate [ 84 Brachial] Heart Rate [ Supine] Respiratory 16 14 20 Rate Blood Pressure 128/50 L 145/59 H Blood Pressure 134/58 H [Right Brachial artery] Blood Pressure [Sitting] Blood Pressure [Standing] Blood Pressure [Supine] O2 Saturation 98 94 95 03/24/20 03/24/20 03/24/20 00:30 04:17 04:30 Temperature 36.8 C 36.8 C 36.8 C Heart Rate 83 Heart Rate [ 89 83 Brachial] Heart Rate [ Supine] Respiratory 18 14 14 Rate Blood Pressure Blood Pressure 146/68 H 129/51 L [Right Brachial artery] Blood Pressure [Sitting] Blood Pressure [Standing] Blood Pressure [Supine] O2 Saturation 100 97 97 03/24/20 03/24/20 03/24/20 08:49 12:06 12:48 Temperature 37.8 C 37.5 C Heart Rate Heart Rate [ 94 95 87 Brachial] Heart Rate [ Supine] Respiratory 20 18 Rate Blood Pressure Blood Pressure 119/53 L 131/52 H 91/50 L [Right Brachial artery] Blood Pressure [Sitting] Blood Pressure [Standing] Blood Pressure [Supine] O2 Saturation 95 93 Oxygen O2 Source Room air I&O (Last 24 Hrs): Intake and Output Totals x24h 03/22/20 03/23/20 03/24/20 23:59 23:59 23:59 Intake Total 2166.667 1453.333 Balance 2166.667 1453.333 General: Alert, Cooperative, No acute distress HEENT: Atraumatic Neck: Supple Lymphatic: no adenopathy Neuro: Alert, Non Focal Cardiovascular: Regular rate, Normal S1, Normal S2 Respiratory: Chest non-tender, No respiratory distress, Breath sounds nml Abdomen: Normal bowel sounds, Soft, No tenderness Extremities: Normal pulses - Results Results: Laboratory Results WBC 6.4 x10^3/uL (4.8-10.8) 03/24/20 05:24 RBC 3.80 10^6/uL (4.20-5.40) L 03/24/20 05:24 Hgb 11.2 g/dL (12.0-16.0) L 03/24/20 05:24 Hct 35.8 % (37.0-47.0) L 03/24/20 05:24 MCV 94.2 fL (81.0-99.0) 03/24/20 05:24 MCH 29.5 pg (27.0-31.0) 03/24/20 05:24 MCHC 31.3 g/dL (32.0-36.0) L 03/24/20 05:24 RDW 14.2 % (12.0-15.0) 03/24/20 05:24 Plt Count 194 10^3/uL (130-450) 03/24/20 05:24 MPV 9.4 fL (7.9-10.8) 03/24/20 05:24 Neut # (Auto) 4.5 10^3/uL (1.5-6.6) 03/24/20 05:24 Lymph # (Auto) 1.2 10^3/uL (1.5-3.5) L 03/24/20 05:24 [place] # (Auto) 0.6 10^3/uL (0.0-1.0) 03/24/20 05:24 Eos # (Auto) 0.0 10^3/uL (0.0-0.7) 03/24/20 05:24 Baso # (Auto) 0.0 10^3/uL (0.0-0.1) 03/24/20 05:24 Absolute Nucleated RBC 0.00 x10^3/uL 03/24/20 05:24 Nucleated RBC % 0.0 /100WBC 03/24/20 05:24 Sodium 141 mmol/L (135-145) 03/24/20 05:24 Potassium 4.5 mmol/L (3.5-5.0) 03/24/20 05:24 Chloride 110 mmol/L (101-111) 03/24/20 05:24 Carbon Dioxide 24 mmol/L (21-32) 03/24/20 05:24 Anion Gap 7.0 (6-13) 03/24/20 05:24 BUN 20 mg/dL (6-20) 03/24/20 05:24 Creatinine 0.8 mg/dL (0.4-1.0) 03/24/20 05:24 Estimated GFR (MDRD) 68 (>89) L 03/24/20 05:24 Glucose 122 mg/dL (70-100) H 03/24/20 05:24 Lactic Acid 1.3 mmol/L (0.5-2.2) 03/23/20 19:14 Calcium 8.7 mg/dL (8.5-10.3) 03/24/20 05:24 Total Bilirubin 0.5 mg/dL (0.2-1.0) 03/23/20 19:14 AST 20 IU/L (10-42) 03/23/20 19:14 ALT 17 IU/L (10-60) 03/23/20 19:14 Alkaline Phosphatase 52 IU/L (42-121) 03/23/20 19:14 Troponin I High Sens 9.3 ng/L (2.3-14.8) 03/24/20 05:24 Total Protein 6.6 g/dL (6.7-8.2) L 03/23/20 19:14 Albumin 3.6 g/dL (3.2-5.5) 03/23/20 19:14 Globulin 3.0 g/dL (2.1-4.2) 03/23/20 19:14 Albumin/Globulin Ratio 1.2 (1.0-2.2) 03/23/20 19:14 Lipase 19 U/L (22-51) L 03/23/20 19:14 TSH 3.17 uIU/mL (0.34-5.60) 03/23/20 19:14 Urine Color YELLOW 03/23/20 19:47 Urine Clarity HAZY (CLEAR) 03/23/20 19:47 Urine pH 6.0 PH (5.0-7.5) 03/23/20 19:47 Ur Specific [place] 1.025 (1.002-1.030) 03/23/20 19:47 Urine Protein NEGATIVE mg/dL (NEGATIVE) 03/23/20 19:47 Urine Glucose (UA) NEGATIVE mg/dL (NEGATIVE) 03/23/20 19:47 Urine Ketones NEGATIVE mg/dL (NEGATIVE) 03/23/20 19:47 Urine Occult Blood MODERATE (NEGATIVE) H 03/23/20 19:47 Urine Nitrite POSITIVE (NEGATIVE) H 03/23/20 19:47 Urine Bilirubin NEGATIVE (NEGATIVE) 03/23/20 19:47 Urine Urobilinogen 0.2 (NORMAL) E.U./dL (NORMAL) 03/23/20 19:47 Ur Leukocyte Esterase TRACE (NEGATIVE) H 03/23/20 19:47 Urine RBC 6-10 /HPF (0-5) H 03/23/20 19:47 Urine WBC >25 /HPF (0-5) H 03/23/20 19:47 Urine WBC Clumps PRESENT 03/23/20 19:47 Ur Squamous Epith Cells RARE Squamous (<= Few) 03/23/20 19:47 Urine Bacteria Many /HPF (None Seen) H 03/23/20 19:47 Ur Microscopic Review INDICATED 03/23/20 19:47 Urine Culture Comments INDICATED 03/23/20 19:47 Nasal Adenovirus (PCR) NOT DETECTED 03/23/20 21:23 Nasal B. parapertussis DNA (PCR) NOT DETECTED 03/23/20 21:23 Nasal Coronavir 229E PCR NOT DETECTED 03/23/20 21:23 Nasal Coronavir HKU1 PCR NOT DETECTED 03/23/20 21:23 Nasal Coronavir NL63 PCR NOT DETECTED 03/23/20 21:23 Nasal Coronavir OC43 PCR NOT DETECTED 03/23/20 21:23 Nasal Enterovir/Rhinovir PCR NOT DETECTED 03/23/20 21:23 Nasal Influenza B PCR NOT DETECTED 03/23/20 21:23 Nasal Influenza A PCR NOT DETECTED 03/23/20 21:23 Nasal Parainfluen 1 PCR NOT DETECTED 03/23/20 21:23 Nasal Parainfluen 2 PCR NOT DETECTED 03/23/20 21:23 Nasal Parainfluen 3 PCR NOT DETECTED 03/23/20 21:23 Nasal Parainfluen 4 PCR NOT DETECTED 03/23/20 21:23 Nasal RSV (PCR) NOT DETECTED 03/23/20 21:23 Nasal B.pertussis DNA PCR NOT DETECTED 03/23/20 21:23 Nasal C.pneumoniae (PCR) NOT DETECTED 03/23/20 21:23 Flex Human Metapneumo PCR NOT DETECTED 03/23/20 21:23 Nasal M.pneumoniae (PCR) NOT DETECTED 03/23/20 21:23 Nasal SARS-CoV-2 (PCR) NOT DETECTED 03/23/20 21:23 ABX Reporting Has patient been on IV antibiotics over the past 48 hours?: Yes Current Medications - Current Medications Current Medications: Active Medications Acetaminophen (Acetaminophen 325 Mg Tablet) 650 mg PO Q4HR PRN PRN Reason: Pain 1 to 4 Aspirin (Aspirin Ec 81 Mg Tablet) 81 mg PO DAILY [facility] Last Admin: 03/24/20 08:21 Dose: 81 mg Documented by: Atorvastatin Calcium (Atorvastatin 10 Mg Tablet) 20 mg PO DAILY [facility] Last Admin: 03/24/20 08:21 Dose: 20 mg Documented by: Donepezil HCl (Donepezil 5 Mg Tablet) 5 mg PO DAILY [facility] Last Admin: 03/24/20 08:21 Dose: 5 mg Documented by: Enoxaparin Sodium (Enoxaparin 40 Mg/0.4 Ml Syringe) 40 mg SUBQ DAILY [facility] Last Admin: 03/24/20 08:21 Dose: 40 mg Documented by: Guaifenesin (Guaifenesin 600 Mg Tablet) 600 mg PO DAILY [facility] Azithromycin 500 mg/ Sodium (Chloride) 250 mls @ 250 mls/hr IV DAILY [facility] Stop: 03/26/20 09:59 Last Admin: 03/24/20 11:51 Dose: 250 mls/hr Documented by: Ceftriaxone Sodium 1 gm/ (Sodium Chloride) 100 mls @ 200 mls/hr IV DAILY [facility] Stop: 03/28/20 09:29 Last Infusion: 03/24/20 11:51 Dose: Infused Documented by: Levothyroxine Sodium (Levothyroxine 100 Mcg Tablet) 100 mcg PO QDAC [facility] Last Admin: 03/24/20 06:27 Dose: 100 mcg Documented by: Multi-Ingredient Ointment (Zinc Oxide 20% Oint 30 Gm Tube) 1 applic TOP PRN PRN PRN Reason: Skin Care Last Admin: 03/24/20 06:30 Dose: 1 applic Documented by: Ondansetron HCl (Ondansetron Odt 4 Mg Tablet) 4 mg TL Q6HR PRN PRN Reason: Nausea / Vomiting Saccharomyces Boulardii (Saccharomyces Boulardii 250 Mg Capsule) 250 mg PO BIDWM [facility] Sodium Chloride (Sodium Chloride Flush 0.9% 10 Ml Syringe) 10 ml IVP PRN PRN PRN Reason: NEEDED PER PROVIDER ORDERS Sodium Chloride (Sodium Chloride Flush 0.9% 10 Ml Syringe) 10 ml IVP 0100,0900,1700 [facility] Last Admin: 03/24/20 08:21 Dose: 10 ml Documented by: Venlafaxine HCl (Venlafaxine Er 75 Mg Capsule) 150 mg PO DAILY [facility] Last Admin: 03/24/20 08:21 Dose: 150 mg Documented by: Aspirin [[place] Aspirin EC] 81 mg PO DAILY 08/31/19 Donepezil [Aricept] 5 mg PO DAILY 08/31/19 Levothyroxine Sodium [Synthroid] 100 mcg PO QDAC 08/31/19 Simvastatin 40 mg PO DAILY 08/31/19 Venlafaxine HCl [Venlafaxine HCl ER] 150 mg PO DAILY 08/31/19
[2020-03-24] MEDS: SACCHAROMYCES BOULARDII 250 MG CAPSULE PO SCH (16:53)
[2020-03-24] MEDS ORDERED: levoFLOXacin 750 MG/150 ML 750 MG/150 ML BAG IV SCH (21:00)
[2020-03-24] MEDS: NYSTATIN POWDER 15 GM TOP SCH (22:39)
[2020-03-25] MEDS: ZINC OXIDE 20% OINT 30 GM TUBE TOP PRN ×3 (00:18→06:14)
[2020-03-25] MEDS: SODIUM CHLORIDE FLUSH 0.9% 10 ML SYRINGE IVP SCH ×3 (00:18→16:19)
[2020-03-25 05:13] LABS: BASOPHILS % (AUTO) 0.7 %; EOSINOPHILS # (AUTO) 0.2 10^3/uL (0.0-0.7); EOSINOPHILS % (AUTO) 2.9 %; HGB - HEMOGLOBIN 10.8 g/dL (12.0-16.0); LYMPHOCYTES # (AUTO) 1.8 10^3/uL (1.5-3.5); LYMPHOCYTES % (AUTO) 30.4 %; MEAN CORPUSCULAR HEMOGLOBIN 29.9 pg (27.0-31.0); MEAN CORPUSCULAR HGB CONC 31.8 g/dL (32.0-36.0); MEAN CORPUSCULAR VOLUME 94.2 fL (81.0-99.0); MEAN PLATELET VOLUME 9.1 fL (7.9-10.8); MONOCYTES # (AUTO) 0.5 10^3/uL (0.0-1.0); MONOCYTES % (AUTO) 8.9 %; NEUTROPHILS # (AUTO) 3.4 10^3/uL (1.5-6.6); NEUTROPHILS % (AUTO) 56.8 %; PLT - PLATELET COUNT 197 10^3/uL (130-450); RED BLOOD COUNT 3.61 10^6/uL (4.20-5.40); RED CELL DISTRIBUTION WIDTH 14.2 % (12.0-15.0)
[2020-03-25 05:23] LABS: CALCIUM 8.7 mg/dL (8.5-10.3); CREATININE 0.8 mg/dL (0.4-1.0); MAGNESIUM 2.1 mg/dL (1.7-2.8)
[2020-03-25] MEDS: LEVOTHYROXINE 100 MCG TABLET PO SCH (06:00)
[2020-03-25] MEDS: ENOXAPARIN 40 MG/0.4 ML SYRINGE SUBQ SCH (09:04)
[2020-03-25] MEDS: ASPIRIN EC 81 MG TABLET PO SCH (09:04)
[2020-03-25] MEDS: DONEPEZIL 5 MG TABLET PO SCH (09:04)
[2020-03-25] MEDS: guaiFENesin 600 MG TABLET PO SCH (09:04)
[2020-03-25] MEDS: ATORVASTATIN 10 MG TABLET PO SCH (09:04)
[2020-03-25] MEDS: SACCHAROMYCES BOULARDII 250 MG CAPSULE PO SCH ×2 (09:04→16:19)
[2020-03-25] MEDS: NYSTATIN POWDER 15 GM TOP SCH ×2 (09:06→22:47)
[2020-03-25] MEDS: cefTRIAXone 1 GM in SODIUM CHLORIDE 0.9% MINIBAG 100 ML IV SCH (09:06)
[2020-03-25] MEDS: VENLAFAXINE ER 75 MG CAPSULE PO SCH (11:15)
[2020-03-25] MEDS: AZITHROMYCIN INJ 500 MG in SODIUM CHLORIDE 0.9% 250 ML IV SCH (11:16)
[2020-03-25] MEDS ORDERED: AZITHROMYCIN 250 MG TABLET PO STA (12:40)
--- NOTE | 2020-03-25 13:52 | PROVIDER PROGRESS NOTE ---
Assessment/Plan - Problem List (1) Left lower lobe pneumonia Assessment/Plan: Pt has cough and the patient become some confused, We will switch antibiotics from Levaquin to azithromycin and Rocephin for community acquired pneumonia. COVID-19 PCR is negative Culture is negative to date at 24 hours. Continue with IV Rocephin while here. Her IV came out therefore will change to oral Zithromax. Continue with Mucinex and probiotic (2) E. coli UTI Assessment/Plan: Her urine culture shows positive for E. coli. Sensitivity study Shows it is pansensitive except intermediate to ampicillin. Continue IV Rocephin for another day. We will plan to transition to oral antibiotics at discharge, probably tomorrow Sinew with probiotic (3) Near syncope Assessment/Plan: This is been a repeated complaint. Her caregiver reported that the patient "gets hot and then breathes heavily" before she feels dizzy and lightheaded. Only 1 set of orthostatic vital signs was done. We will order daily orthostatic vital checks. Continue with telemetry (4) Hypothyroidism Assessment/Plan: Speech is normal. Continue her home dose of Synthroid. (5) Dementia Qualifiers: Dementia type: unspecified type Dementia behavioral disturbance: without behavioral disturbance Qualified Code(s): F03.90 - Unspecified dementia without behavioral disturbance Assessment/Plan: Continue home medications. (6) Dehydration Assessment/Plan: There was concern for dehydration given her mildly elevated BUN and a collapsible IVC per the ER provider. She received 2 L of IV fluids in the emergency department. Resolved Creatinine is normal now - Current Meds Current Meds: Current Medications Generic Name Dose Route Start Last Admin Trade Name Rafaelq PRN Reason Stop Dose Admin Acetaminophen 650 mg 03/23/20 21:17 03/24/20 19:32 Acetaminophen 325 Mg Tablet PO 650 mg Q4HR PRN Administration Pain 1 to 4 Aspirin 81 mg 03/24/20 09:00 03/25/20 09:04 Aspirin Ec 81 Mg Tablet PO 81 mg DAILY TIM Administration Atorvastatin Calcium 20 mg 03/24/20 09:00 03/25/20 09:04 Atorvastatin 10 Mg Tablet PO 20 mg DAILY TIM Administration Donepezil HCl 5 mg 03/24/20 09:00 03/25/20 09:04 Donepezil 5 Mg Tablet PO 5 mg DAILY TIM Administration Enoxaparin Sodium 40 mg 03/24/20 09:00 03/25/20 09:04 Enoxaparin 40 Mg/0.4 Ml Syringe SUBQ 40 mg DAILY TIM Administration Guaifenesin 600 mg 03/25/20 09:00 03/25/20 09:04 Guaifenesin 600 Mg Tablet PO 600 mg DAILY TIM Administration Ceftriaxone Sodium 1 gm/ 100 mls @ 200 mls/hr 03/24/20 09:00 03/25/20 09:36 Sodium Chloride IV 03/28/20 09:29 Infused DAILY TIM Infusion Levothyroxine Sodium 100 mcg 03/24/20 07:00 03/25/20 06:00 Levothyroxine 100 Mcg Tablet PO 100 mcg QDAC TIM Administration Multi-Ingredient Ointment 1 applic 03/24/20 01:54 03/25/20 06:14 Zinc Oxide 20% Oint 30 Gm Tube TOP 1 applic PRN PRN Administration Skin Care Nystatin 1 applic 03/24/20 21:00 03/25/20 09:06 Nystatin Powder 15 Gm TOP 1 applic BID TIM Administration Saccharomyces Boulardii 250 mg 03/24/20 17:00 03/25/20 09:04 Saccharomyces Boulardii 250 Mg Capsule PO 250 mg BIDWM TIM Administration Sodium Chloride 10 ml 03/24/20 01:00 03/25/20 09:06 Sodium Chloride Flush 0.9% 10 Ml Syringe IVP 10 ml 0100,0900,1700 TIM Administration Venlafaxine HCl 150 mg 03/24/20 09:00 03/25/20 11:15 Venlafaxine Er 75 Mg Capsule PO 150 mg DAILY TIM Administration - Lab Result Fish Bone Diagrams: 03/25/20 04:32 03/25/20 04:32 - Additional Planning My Orders: My Active Orders 03/25/20 Evaluate and Treat PT [PT] Routine 03/25/20 08:52 Orthostatic [Vital Signs - Orthostatic] [RC] DAILY 03/26/20 09:00 Azithromycin [Zithromax] 500 mg PO ONCE ONE Subjective - Subjective Patient Reports: Feeling Better, Resting Comfortably, Other (Coughing has resolved) Objective Vital Signs: Vital Signs - 24 hr 03/24/20 03/24/20 03/25/20 15:40 21:00 00:24 Temperature 36.7 C 36.7 C 36.7 C Heart Rate [ 86 80 74 Brachial] Respiratory 16 16 16 Rate Blood Pressure 127/50 L 140/61 H 143/55 H [Right Brachial artery] O2 Saturation 97 96 94 03/25/20 03/25/20 04:40 08:49 Temperature 36.7 C 36.8 C Heart Rate [ 74 82 Brachial] Respiratory 16 14 Rate Blood Pressure 131/59 H 140/68 H [Right Brachial artery] O2 Saturation 94 98 Oxygen O2 Source Room air I&O (Last 24 Hrs): Intake and Output Totals x24h 03/23/20 03/24/20 03/25/20 23:59 23:59 23:59 Intake Total 2166.667 2653.333 638.333 Balance 2166.667 2653.333 638.333 General: Alert HEENT: EOMI, Mucous membr. moist/pink Neck: Supple, No JVD Neuro: Alert, Non Focal Cardiovascular: Regular rate, No murmurs Respiratory: No respiratory distress, Breath sounds nml Abdomen: Normal bowel sounds, Soft Extremities: No clubbing, No edema - Results Results: Laboratory Results WBC 6.0 x10^3/uL (4.8-10.8) 03/25/20 04:32 RBC 3.61 10^6/uL (4.20-5.40) L 03/25/20 04:32 Hgb 10.8 g/dL (12.0-16.0) L 03/25/20 04:32 Hct 34.0 % (37.0-47.0) L 03/25/20 04:32 MCV 94.2 fL (81.0-99.0) 03/25/20 04:32 MCH 29.9 pg (27.0-31.0) 03/25/20 04:32 MCHC 31.8 g/dL (32.0-36.0) L 03/25/20 04:32 RDW 14.2 % (12.0-15.0) 03/25/20 04:32 Plt Count 197 10^3/uL (130-450) 03/25/20 04:32 MPV 9.1 fL (7.9-10.8) 03/25/20 04:32 Neut # (Auto) 3.4 10^3/uL (1.5-6.6) 03/25/20 04:32 Lymph # (Auto) 1.8 10^3/uL (1.5-3.5) 03/25/20 04:32 Jerauld # (Auto) 0.5 10^3/uL (0.0-1.0) 03/25/20 04:32 Eos # (Auto) 0.2 10^3/uL (0.0-0.7) 03/25/20 04:32 Baso # (Auto) 0.0 10^3/uL (0.0-0.1) 03/25/20 04:32 Absolute Nucleated RBC 0.00 x10^3/uL 03/25/20 04:32 Nucleated RBC % 0.0 /100WBC 03/25/20 04:32 Sodium 138 mmol/L (135-145) 03/25/20 04:32 Potassium 3.8 mmol/L (3.5-5.0) 03/25/20 04:32 Chloride 108 mmol/L (101-111) 03/25/20 04:32 Carbon Dioxide 24 mmol/L (21-32) 03/25/20 04:32 Anion Gap 6.0 (6-13) 03/25/20 04:32 BUN 14 mg/dL (6-20) 03/25/20 04:32 Creatinine 0.8 mg/dL (0.4-1.0) 03/25/20 04:32 Estimated GFR (MDRD) 68 (>89) L 03/25/20 04:32 Glucose 119 mg/dL (70-100) H 03/25/20 04:32 Lactic Acid 1.3 mmol/L (0.5-2.2) 03/23/20 19:14 Calcium 8.7 mg/dL (8.5-10.3) 03/25/20 04:32 Magnesium 2.1 mg/dL (1.7-2.8) 03/25/20 04:32 Total Bilirubin 0.5 mg/dL (0.2-1.0) 03/23/20 19:14 AST 20 IU/L (10-42) 03/23/20 19:14 ALT 17 IU/L (10-60) 03/23/20 19:14 Alkaline Phosphatase 52 IU/L (42-121) 03/23/20 19:14 Troponin I High Sens 9.3 ng/L (2.3-14.8) 03/24/20 05:24 Total Protein 6.6 g/dL (6.7-8.2) L 03/23/20 19:14 Albumin 3.6 g/dL (3.2-5.5) 03/23/20 19:14 Globulin 3.0 g/dL (2.1-4.2) 03/23/20 19:14 Albumin/Globulin Ratio 1.2 (1.0-2.2) 03/23/20 19:14 Lipase 19 U/L (22-51) L 03/23/20 19:14 TSH 3.17 uIU/mL (0.34-5.60) 03/23/20 19:14 Urine Color YELLOW 03/23/20 19:47 Urine Clarity HAZY (CLEAR) 03/23/20 19:47 Urine pH 6.0 PH (5.0-7.5) 03/23/20 19:47 Ur Specific [place] 1.025 (1.002-1.030) 03/23/20 19:47 Urine Protein NEGATIVE mg/dL (NEGATIVE) 03/23/20 19:47 Urine Glucose (UA) NEGATIVE mg/dL (NEGATIVE) 03/23/20 19:47 Urine Ketones NEGATIVE mg/dL (NEGATIVE) 03/23/20 19:47 Urine Occult Blood MODERATE (NEGATIVE) H 03/23/20 19:47 Urine Nitrite POSITIVE (NEGATIVE) H 03/23/20 19:47 Urine Bilirubin NEGATIVE (NEGATIVE) 03/23/20 19:47 Urine Urobilinogen 0.2 (NORMAL) E.U./dL (NORMAL) 03/23/20 19:47 Ur Leukocyte Esterase TRACE (NEGATIVE) H 03/23/20 19:47 Urine RBC 6-10 /HPF (0-5) H 03/23/20 19:47 Urine WBC >25 /HPF (0-5) H 03/23/20 19:47 Urine WBC Clumps PRESENT 03/23/20 19:47 Ur Squamous Epith Cells RARE Squamous (<= Few) 03/23/20 19:47 Urine Bacteria Many /HPF (None Seen) H 03/23/20 19:47 Ur Microscopic Review INDICATED 03/23/20 19:47 Urine Culture Comments INDICATED 03/23/20 19:47 Nasal Adenovirus (PCR) NOT DETECTED 03/23/20 21:23 Nasal B. parapertussis DNA (PCR) NOT DETECTED 03/23/20 21:23 Nasal Coronavir 229E PCR NOT DETECTED 03/23/20 21:23 Nasal Coronavir HKU1 PCR NOT DETECTED 03/23/20 21:23 Nasal Coronavir NL63 PCR NOT DETECTED 03/23/20 21:23 Nasal Coronavir OC43 PCR NOT DETECTED 03/23/20 21:23 Nasal Enterovir/Rhinovir PCR NOT DETECTED 03/23/20 21:23 Nasal Influenza B PCR NOT DETECTED 03/23/20 21:23 Nasal Influenza A PCR NOT DETECTED 03/23/20 21:23 Nasal Parainfluen 1 PCR NOT DETECTED 03/23/20 21:23 Nasal Parainfluen 2 PCR NOT DETECTED 03/23/20 21:23 Nasal Parainfluen 3 PCR NOT DETECTED 03/23/20 21:23 Nasal Parainfluen 4 PCR NOT DETECTED 03/23/20 21:23 Nasal RSV (PCR) NOT DETECTED 03/23/20 21:23 Nasal B.pertussis DNA PCR NOT DETECTED 03/23/20 21:23 Nasal C.pneumoniae (PCR) NOT DETECTED 03/23/20 21:23 Flex Human Metapneumo PCR NOT DETECTED 03/23/20 21:23 Nasal M.pneumoniae (PCR) NOT DETECTED 03/23/20 21:23 Nasal SARS-CoV-2 (PCR) NOT DETECTED 03/23/20 21:23
--- NOTE | 2020-03-25 16:06 | Discharge Plan ---
Discharge Plan Problem Reviewed?: No Disposition: Home, Self Care Condition: Stable Prescriptions: Saccharomyces Boulardii [Florastor] 250 mg PO BIDWM #10 capsule Cephalexin [Keflex] 500 mg PO BID #10 capsule Diet: Regular Activity Restrictions: Activity as Tolerated Shower Restrictions: No Health Concerns: Your hospitalized because of being weak, confused, we found that you had a urinary tract infection and also a pneumonia. You are being discharged to take several more days of oral antibiotics plus a probiotic. The new prescriptions were electronically sent to your pharmacy. Please resume your other prehospital medications. You were evaluated by physical therapist. You should be using a walker to get around everywhere. Plan of Treatment: As above. Care Goals: Improvement in symptoms and stabilization are the goals. Assessment: Written instructions were provided at discharge for a reminder. Additional Instructions or Follow Up instructions: You should see your Primary Care Provider in the next 5 to 10 days for a hospital follow-up, to assure that everything has been treated completely. No Smoking: If you smoke, Please STOP! Call for help. Follow-up with: Agustín Benson DO [Primary Care Provider] -
[2020-03-26] MEDS: SODIUM CHLORIDE FLUSH 0.9% 10 ML SYRINGE IVP SCH ×2 (00:52→08:47)
[2020-03-26 05:24] LABS: BASOPHILS # (AUTO) 0.1 10^3/uL (0.0-0.1); BASOPHILS % (AUTO) 0.7 %; EOSINOPHILS # (AUTO) 0.2 10^3/uL (0.0-0.7); EOSINOPHILS % (AUTO) 2.6 %; HGB - HEMOGLOBIN 10.9 g/dL (12.0-16.0); LYMPHOCYTES # (AUTO) 1.9 10^3/uL (1.5-3.5); MEAN CORPUSCULAR HEMOGLOBIN 29.9 pg (27.0-31.0); MEAN CORPUSCULAR HGB CONC 32.8 g/dL (32.0-36.0); MEAN PLATELET VOLUME 9.1 fL (7.9-10.8); MONOCYTES # (AUTO) 0.5 10^3/uL (0.0-1.0); MONOCYTES % (AUTO) 7.2 %; NEUTROPHILS # (AUTO) 4.8 10^3/uL (1.5-6.6); NEUTROPHILS % (AUTO) 64.1 %; PLT - PLATELET COUNT 199 10^3/uL (130-450); RED BLOOD COUNT 3.65 10^6/uL (4.20-5.40); RED CELL DISTRIBUTION WIDTH 13.8 % (12.0-15.0); WHITE BLOOD COUNT 7.5 x10^3/uL (4.8-10.8)
[2020-03-26 05:32] LABS: CALCIUM 8.8 mg/dL (8.5-10.3); CREATININE 0.8 mg/dL (0.4-1.0)
[2020-03-26] MEDS: LEVOTHYROXINE 100 MCG TABLET PO SCH (06:15)
[2020-03-26] MEDS: SACCHAROMYCES BOULARDII 250 MG CAPSULE PO SCH (08:08)
[2020-03-26 08:16] VITALS: BP 159/67
[2020-03-26] MEDS: cefTRIAXone 1 GM in SODIUM CHLORIDE 0.9% MINIBAG 100 ML IV SCH (08:47)
[2020-03-26] MEDS: ENOXAPARIN 40 MG/0.4 ML SYRINGE SUBQ SCH (08:47)
[2020-03-26] MEDS: ASPIRIN EC 81 MG TABLET PO SCH (08:48)
[2020-03-26] MEDS: DONEPEZIL 5 MG TABLET PO SCH (08:48)
[2020-03-26] MEDS: ATORVASTATIN 10 MG TABLET PO SCH (08:48)
[2020-03-26] MEDS: guaiFENesin 600 MG TABLET PO SCH (08:48)
[2020-03-26] MEDS: NYSTATIN POWDER 15 GM TOP SCH (08:48)
[2020-03-26] MEDS: VENLAFAXINE ER 75 MG CAPSULE PO SCH (08:48)
[2020-03-26] MEDS ORDERED: AZITHROMYCIN 250 MG TABLET PO ONE ×2 (09:00→10:00)
--- NOTE | 2020-03-26 11:15 | DISCHARGE SUMMARY ---
Discharge Summary Admit Date: 03/23/20 Discharge Date: 03/26/20 Discharging Provider: Dr Kayla Alvarado Primary Care Provider: Dr Agustín Benson Code Status: Do Not Attempt Resuscitation Condition at Discharge: Stable Discharge Disposition: 01 Home, Self Care - HPI History of Present Illness: From the admission H&P of Dr Angelo Guzmanf: This is a 84-year-old female with a past medical history significant for hypothyroidism, dementia who presents today from home after she nearly passed out. Most of the history is obtained from her granddaughter, Betina and the ER provider, given the patient has advanced dementia and is a poor historian. Betina tells me that over the past few years, her grandmother has been having episodes of near syncope. This has progressed over the past few months and so they have been seeking medical attention on an outpatient basis. She states they saw her primary care provider and underwent a CT scan. She states that dur ing one of her office visits, she was found to have some hypoxia with ambulation. She states that her doctor was planning to order an ultrasound of her legs to evaluate for blood clots. Betina tells me that the patient gets overheated at times and then gets some heavy breathing before feeling like she is going to pass out. She states she has never passed out. The patient does not complain of any dyspnea or chest pain. She has not had any fevers. She tells me she has been diagnosed with multiple urinary tract infections in the past. The patient today states that she knows she is here at [facility]. She is not sure exactly why she is here. She states she does feel dizzy and lig htheaded at times. She denies ever passing out. Reports no chest pain or dyspnea. Denies nausea, vomiting, abdominal pain. Reports no dysuria, urgency, frequency. She reports feeling fatigued. Denies any weakness. In the emergency department, she was found to be afebrile with temperature of 3 6.4 C. Her heart rate was in the 70s. Blood pressure is 147/78. Orthostatics were negative. She was not tachypneic and saturating well on room air. Labs were unremarkable except for BUN of 30. Her urinalysis did reveal pyuria with positive nitrites and leukocyte Estrace. Her EKG did not suggest ischemia and her initial troponin was negative. Chest x-ray was concerning for possible left lower lobe infiltrate. CT angiogram from last week showed no pulmonary embolism but did reveal mild left lower lobe atelectasis. She was given Levaquin IV in the emergency department and 2 L of IV fluid. Given her pneumonia severity index score was 84, which is a risk class of 4, the recommendation is for inpatient hospitalization. This Hospitalist was consulted for admission. I did discuss goals of care with the patient's grandchild, Betina. She states the patient is a full code for the time being but she is planning to discuss this with her POA, Jennifer. I did contact Jennifer with me that she is actually a financial power of city attorney. She states that the patient's son, Leeroy, is her medical power of city attorney. I asked for Leeroy's number given it is not in the computer but she asked me why I needed. I told her to discuss CODE STATUS of the patient. She states that they have been discussing this and they want to discuss it further with the patient over this weekend as they want to ask her what she would want. Jennifer feels the patient would likely want to be DNR. Jennifer also feels the patient can make her own decision regarding CODE STATUS despite her dementia. I did asked the patient if she would want to be a full code and she said no. She would like to be DNR. - HOSPITAL COURSE Hospital Course: (1) Left lower lobe pneumonia Pt had a cough and was confused, she received a dose of iv Levaquin in the ER, but was continued on IV Ceftriaxone and IV Azithromycin for treating a community acquired pneumonia. Her COVID-19 PCR was negative. She also received Mucinex and probiotics. Blood cultures were negative to date. She got the complete Zithro dose here, and was discharged to take 5 more days of oral Keflex b.i.d. and a Probiotic. (2) E. coli UTI Her urine culture grew E. coli. and sensitivity study showed it was pansensitive except intermediate to Ampicillin. The Kflex was ordered at discharge. (3) Near syncope This is been a repeated complaint. Her caregiver reported that the patient "gets hot and then breathes heavily" before she feels dizzy and lightheaded. Her orthostatic vital signs was done and were normal, except for one set. Telemetry showed no dysrhythmias. Troponins were normal. An Echo was done that was entirely normal, LVEF was 65%. (4) Dehydration There was concern for dehydration given her mildly elevated BUN of 30 at admission and a collapsible IVC per the ER provider's . She received 2 L of IV fluids in the emergency department. This may have been adding to the lightheadedness complaint. (5) Hypothyroidism Her TSH was normal at 3.17. Thus, we continued her home dose of Synthroid. (6) Dementia Continued home medications. - ALLERGIES Allergies/Adverse Reactions: Allergies Allergy/AdvReac Type Severity Reaction Status Date / Time No Known Drug Allergies Allergy Verified 08/31/19 21:49 - MEDICATIONS Home Medications: Ambulatory Orders Medication Instructions Recorded Confirmed Aspirin [[place] Aspirin EC] 81 mg PO DAILY 08/31/19 03/24/20 Donepezil [Aricept] 5 mg PO DAILY 08/31/19 03/24/20 Levothyroxine Sodium [Synthroid] 100 mcg PO QDAC 08/31/19 03/24/20 Simvastatin 40 mg PO DAILY 08/31/19 03/24/20 Venlafaxine HCl [Venlafaxine HCl 150 mg PO DAILY 08/31/19 03/24/20 ER] Cephalexin [Keflex] 500 mg PO BID #10 capsule 03/26/20 Saccharomyces Boulardii [Florastor] 250 mg PO BIDWM #10 capsule 03/26/20 - PHYSICAL EXAM AT DISCHARGE General Appearance: positive: No acute distress, Alert Eyes Bilateral: positive: Normal inspection, EOMI ENT: positive: ENT inspection nml, No signs of dehydration Respiratory: positive: No respiratory distress, Breath sounds nml Cardiovascular: positive: Regular rate & rhythm, No murmur Abdomen: positive: Non-tender, Nml bowel sounds, No distention Skin: positive: Warm, Dry Extremities: positive: Non-tender, No pedal edema Neurologic/Psychiatric: positive: Motor nml, Mood/affect nml - LABS Result Diagrams: 03/26/20 05:06 03/26/20 05:06 - DIAGNOSTIC IMAGING Diagnostic Imaging Results: Final report reviewed - FOLLOW UP Follow Up: See PCP in 5-10 days for hospital follow-up. - TIME SPENT Time Spent in Discharge (Minutes): 40
== END 2020-03-26 13:15 | disposition home or self-care (01) | DRG 195 ==
LOC: EDUNIT# → ED 18:56 → OBSVTOIN 21:17 → INTOOBSV 21:17 → MS2 21:17 → OBSVTOIN 03-24 10:50 → UNDODISIN 03-26 13:15
PROVIDERS: ADMIT Internal Medicine; ATTEND Internal Medicine
DX: J18.9 Pneumonia, unspecified organism (principal); N30.90 Cystitis, unspecified without hematuria; B96.20 Unspecified Escherichia coli [E. coli] as the cause of diseases classified elsewhere; E86.0 Dehydration; R55 Syncope and collapse; F03.90 Unspecified dementia, unspecified severity, without behavioral disturbance, psychotic disturbance, mood disturbance, and anxiety; E03.9 Hypothyroidism, unspecified; E78.5 Hyperlipidemia, unspecified; F32.9 Major depressive disorder, single episode, unspecified; F41.9 Anxiety disorder, unspecified; Z79.82 Long term (current) use of aspirin; Z79.899 Other long term (current) drug therapy
CPT/HCPCS: 0202U; 36415; 70450; 80048; 80053; 81001; 81003; 83605; 83690; 83735; 84443; 84484; 85025; 87040; 87086; 87181; 93005; 93306; 96361; 96365; 96366; 99285

== ENCOUNTER 2020-04-05 15:10 | Outpatient (CLI) | payer MEDICARE, OTHER ==
--- NOTE | 2020-04-06 13:48 | XRAY Report ---
PROCEDURE: Ribs 3 View BILAT INDICATIONS: LEFT SIDE RIB PAIN, INJURY, BACK INJ, COMPR FX L1 TECHNIQUE: Single frontal view of the bilateral ribs were acquired. COMPARISON: Chest plain film 03/23/2020 FINDINGS: Surgical changes and devices: None. Bones and chest wall: No fractures or dislocations. No suspicious bony lesions. Overlying soft tis sues appear unremarkable. Lungs and pleura: The visualized lung appears clear. No pleural effusions or pneumothorax are visib le. IMPRESSION: No rib fracture found, no pneumothorax identified. Reviewed by: Felipe Sweeney MD on 04/05/2020 4:26 PM PST Approved by: Felipe Sweeney MD on 04/05/2020 4:26 PM PST Station ID: [id number]
== END 2020-04-05 15:11 | disposition home or self-care (01) ==
LOC: DI 15:10
PROVIDERS: ATTEND Physician Assistant
DX: R07.81 Pleurodynia (principal); M79.671 Pain in right foot; M54.5 Low back pain; M54.6 Pain in thoracic spine

== ENCOUNTER 2020-04-05 15:42 | Emergency (ER) | payer MEDICARE, OTHER ==
[2020-04-05 16:27] LABS: BASOPHILS # (AUTO) 0.1 10^3/uL (0.0-0.1); BASOPHILS % (AUTO) 0.8 %; EOSINOPHILS # (AUTO) 0.2 10^3/uL (0.0-0.7); EOSINOPHILS % (AUTO) 2.6 %; HGB - HEMOGLOBIN 12.6 g/dL (12.0-16.0); LYMPHOCYTES # (AUTO) 1.5 10^3/uL (1.5-3.5); LYMPHOCYTES % (AUTO) 23.7 %; MEAN CORPUSCULAR HEMOGLOBIN 30.1 pg (27.0-31.0); MEAN CORPUSCULAR HGB CONC 31.9 g/dL (32.0-36.0); MEAN CORPUSCULAR VOLUME 94.3 fL (81.0-99.0); MEAN PLATELET VOLUME 8.8 fL (7.9-10.8); MONOCYTES # (AUTO) 0.4 10^3/uL (0.0-1.0); MONOCYTES % (AUTO) 5.5 %; NEUTROPHILS # (AUTO) 4.4 10^3/uL (1.5-6.6); NEUTROPHILS % (AUTO) 66.9 %; PLT - PLATELET COUNT 323 10^3/uL (130-450); RED BLOOD COUNT 4.19 10^6/uL (4.20-5.40); RED CELL DISTRIBUTION WIDTH 14.8 % (12.0-15.0); WHITE BLOOD COUNT 6.5 x10^3/uL (4.8-10.8)
--- NOTE | 2020-04-05 16:31 | ED Physician Documentation ---
History of Present Illness - Stated complaint Stated Complaint: FAINTING - Chief complaint Chief Complaint: Neuro - Additonal information Additional information: 85-year-old female presents to the emergency department for evaluation of a sync opal episode. She was at our imaging department this afternoon getting x-rays of her thoracic lumbar ribs and foot when she had a very brief syncopal episode after standing for the x-ray of the chest. Per the technical communicator she had loss of consciousness for just a few seconds. She was somewhat confused for about 10 seconds before she returned to baseline mentation. She does have a history of dementia. She was admitted to this hospital 03/23/2020 for near sycope. While hospitalized she had normal troponins. An echo was done that was also entirely normal with the LVEF of 65%. Recurrent ne ar syncope has been a worsening problem over the last 6 months to a year. This typically follows any exertion or ambulation. She did have UTI which grew ecoli and was rx keflex on dc. Since discharge from the hospital the patient has been complaining about back pain with any movement or activity. The granddaughter who cares for Ryanne at home reports to me that since discharge from the hospital she has done very little ambulation and has needed moderate to full assist with a walker. Review of Systems Unable to obtain: Dementia, Other (caregiver) Constitutional: reports: Reviewed and negative Eyes: reports: Reviewed and negative Ears: reports: Reviewed and negative Nose: reports: Reviewed and negative Throat: reports: Reviewed and negative Cardiac: reports: Chest pain / pressure Respiratory: reports: Reviewed and negative GI: denies: Abdominal Pain, Nausea, Vomiting : denies: Dysuria, Frequency, Hesitancy Skin: denies: Rash Musculoskeletal: reports: Back pain Neurologic: reports: Generalized weakness, Near syncope, Syncope. denies: Hea dache, Head injury Psychiatric: reports: Reviewed and negative PD PAST MEDICAL HISTORY - Past Medical History Cardiovascular: High cholesterol Neuro: Dementia Endocrine/Autoimmune: HyPOthyroidism - Present Medications Home Medications: Ambulatory Orders Medication Instructions Recorded Confirmed Aspirin [[place] Aspirin EC] 81 mg PO DAILY 08/31/19 03/24/20 Donepezil [Aricept] 5 mg PO DAILY 08/31/19 03/24/20 Levothyroxine Sodium [Synthroid] 100 mcg PO QDAC 08/31/19 03/24/20 Simvastatin 40 mg PO DAILY 08/31/19 03/24/20 Venlafaxine HCl [Venlafaxine HCl 150 mg PO DAILY 08/31/19 03/24/20 ER] Cephalexin [Keflex] 500 mg PO BID #10 capsule 03/26/20 Saccharomyces Boulardii [Florastor] 250 mg PO BIDWM #10 capsule 03/26/20 - Allergies Allergies/Adverse Reactions: Allergies Allergy/AdvReac Type Severity Reaction Status Date / Time No Known Drug Allergies Allergy Verified 08/31/19 21:49 - Social History Does the pt smoke?: No Smoking Status: Never smoker PD ED PE EXPANDED - General General: Alert, No acute distress - Cardiac Cardiac: Regular Rate, Radial strong equal, Pedal strong equal, Cap refill < 2 sec - Respiratory Respiratory: Clear to ausultation yeny. No: Distress, Labored - Abdomen Abdomen: Normal Bowel sounds. No: Tender to palpation - Back Back: Other (midline vertebral tenderness of lumbar and thoracic) - Derm Derm: Normal color. No: Rash - Extremities Extremities: Right foot (mild swelling laterally withotu deformity. full ROM) - Neuro Neuro: Alert and Oriented X 3, CNII-XII intact - GCS Motor: Obeys Commands Verbal: Oriented Results - Vitals Vitals: Vital Signs - 24 hr 04/05/20 04/05/20 04/05/20 15:48 17:58 19:00 Temperature 36 C L Heart Rate 87 86 88 Heart Rate [ 87 Sitting] Heart Rate [ 93 Standing] Heart Rate [ 81 Supine] Respiratory 16 17 22 Rate Blood Pressure 139/75 H 148/79 H 164/79 H Blood Pressure 144/77 H [Sitting] Blood Pressure 137/76 H [Standing] Blood Pressure 166/70 H [Supine] O2 Saturation 95 94 98 Oxygen O2 Source Room air - EKG (time done) 1557 Rate: Rate (enter#) (82) Rhythm: NSR [place]: Normal Intervals: Normal LA QRS: Normal, LVH Ischemia: Normal ST segments Compare to prior EKG: Unchanged from prior EKG Computer interpretation: Agree with computer - Labs Labs: Laboratory Tests 04/05/20 04/05/20 04/05/20 16:14 16:14 16:14 WBC 6.5 RBC 4.19 L Hgb 12.6 Hct 39.5 MCV 94.3 MCH 30.1 MCHC 31.9 L RDW 14.8 Plt Count 323 MPV 8.8 Neut # (Auto) 4.4 Lymph # (Auto) 1.5 [place] # (Auto) 0.4 Eos # (Auto) 0.2 Baso # (Auto) 0.1 Absolute Nucleated RBC 0.00 Nucleated RBC % 0.0 Sodium 139 Potassium 4.3 Chloride 103 Carbon Dioxide 26 Anion Gap 10.0 BUN 38 H Creatinine 1.2 H Estimated GFR (MDRD) 43 L Glucose 137 H Calcium 9.3 Total Bilirubin 0.4 AST 20 ALT 25 Alkaline Phosphatase 83 Troponin I High Sens 3.7 Total Protein 7.3 Albumin 3.6 Globulin 3.7 Albumin/Globulin Ratio 1.0 Lipase 53 H Urine Color Urine Clarity Urine pH Ur Specific [place] Urine Protein Urine Glucose (UA) Urine Ketones Urine Occult Blood Urine Nitrite Urine Bilirubin Urine Urobilinogen Ur Leukocyte Esterase Ur Microscopic Review Urine Culture Comments 04/05/20 17:30 WBC RBC Hgb Hct MCV MCH MCHC RDW Plt Count MPV Neut # (Auto) Lymph # (Auto) Norman # (Auto) Eos # (Auto) Baso # (Auto) Absolute Nucleated RBC Nucleated RBC % Sodium Potassium Chloride Carbon Dioxide Anion Gap BUN Creatinine Estimated GFR (MDRD) Glucose Calcium Total Bilirubin AST ALT Alkaline Phosphatase Troponin I High Sens Total Protein Albumin Globulin Albumin/Globulin Ratio Lipase Urine Color YELLOW Urine Clarity CLEAR Urine pH 6.0 Ur Specific [place] 1.025 Urine Protein NEGATIVE Urine Glucose (UA) NEGATIVE Urine Ketones NEGATIVE Urine Occult Blood TRACE-INTA Urine Nitrite NEGATIVE Urine Bilirubin NEGATIVE Urine Urobilinogen 0.2 (NORMAL) Ur Leukocyte Esterase NEGATIVE Ur Microscopic Review NOT INDICATED Urine Culture Comments NOT INDICATED - Rads (name of study) right foot Radiology: Final report received (No visualized fracture or dislocation) CT thoracic Radiology: Final report received (Menstruated L1 compression fracture, grossly unchanged. Mildly prominent lymph nodes at the GE junction, technically nonspecific finding however there appears to be distal esophageal wall thickening consider further evaluation with upper endoscopy to exclude esophageal malignancy ) CT lumbar Radiology: Final report received (L1 compression fracture appears grossly unchanged since 03/14/2020) PD MEDICAL DECISION MAKING - ED course Complexity details: reviewed old records, reviewed results, re-evaluated patient, considered differential, d/w patient, d/w family ED course: 85-year-old female is brought to the emergency department after she had a syncopal episode this afternoon while getting x-rays of her chest and spine completed. She was admitted to this hospital 03/23/2020 with presyncopal episodes. These episodes were always precipitated by activity. At the time of the last admission there was concern for right lower lobe pneumonia as well as a urinary tract infection. While hospitalized she did have an echocardiogram completed that was essentially normal and she had a left ventricular ejection fraction of greater than 65%. However since discharge from the hospital she has been fairly deconditioned. She has been spending most of her time in bed secondary to the back pain and has been getting progressively weaker. Today on laboratory evaluation she does appear moderately dehydrated with a BUN of 38. Her creatinine is 1.2. She was given 2 L of IV fluid. We did complete orthostatic blood pressures and there were no orthostatic vital sign changes. Her EKG is unchanged from previous high-sensitivity troponin is negative. We did proceed with CT imaging of the thoracic and lumbar spines. She does have a known old L1 compression fracture. We do also see an L3 compression fracture that is age-indeterminate. Unfortunately the CT scan also showed esophageal wall thickening with some lymphadenopathy that could be concerning for malignancy. These findings were discussed at length with the patient's granddaughter Betina at the bedside as well as the patient. There is no indication to admit the patient to the hospital for syncopal episode as she recently had a very thorough work-up. I do believe that the syncope is secondary to deconditioning as well as dehydration. I have encouraged them to increase her oral hydration throughout the day. Her urine shows no further signs of infection. I have advised that they should attempt to keep her upright and out of bed more often to help with her deconditioning. She will follow up with primary care provider. Referral to GI specialist is indicated for an EGD and likely biopsy. Emergent and worrisome return precautions were discussed Departure - Departure Disposition: 01 Home, Self Care Clinical Impression: Syncope and collapse, Dehydration, Esophageal thickening Compression fracture of L1 lumbar vertebra Qualifiers: Encounter type: subsequent encounter Fracture healing: with routine healing Qualified Code(s): S32.010D - Wedge compression fracture of first lumbar vertebra, subsequent encounter for fracture with routine healing Compression fracture of L3 vertebra Qualifiers: Encounter type: initial encounter Qualified Code(s): S32.030A - Wedge comp ression fracture of third lumbar vertebra, initial encounter for closed fracture Condition: Stable Record reviewed to determine appropriate education?: Yes Instructions: ED Dehydration Follow-Up: Jeny Chamorro PA [Primary Care Provider] - Comments: Ryanne I am glad that you are feeling better. You were seen today in the emergency department after fainting. As we discussed I think the cause is most likely dehydration. You were given extra fluids here in the emergency department. Please try to drink at least 1.5 L of water daily. Your echocardiogram completed on the last admission was essentially normal for age. Your EKG and chest x-ray today do not show any worrisome findings. Your urine shows no further signs of infection. The CT scans of your thoracic and lumbar spines do show old/known L1 and L3 compression fractures. These are not new. Unfortunately the CT scan did show esophageal thickening in the lower portion of your esophagus. There was one lymph node that was enlarged near this region. This can be very concerning for cancer. Please discuss this finding with your primary doctor. You should be referred to a hay rake operator for an EGD and possible biopsy. It is okay to take 1 full tablet of Vicodin for pain 2 or 3 times a day. Please be very careful it will cause constipation. I do recommend that you take MiraLAX if you have not had a large bowel movement in 48 hours. You should always use a walker when out of bed. You should not ambulate by your self. Please return to the emergency department if you have any falls that cause you to lose consciousness, have severe pain or numbness in your extremities.
[2020-04-05 16:44] LABS: ALBUMIN 3.6 g/dL (3.2-5.5); BILIRUBIN,TOTAL 0.4 mg/dL (0.2-1.0); CALCIUM 9.3 mg/dL (8.5-10.3); CREATININE 1.2 mg/dL (0.4-1.0); TOTAL PROTEIN 7.3 g/dL (6.7-8.2)
--- NOTE | 2020-04-05 17:13 | XRAY Report ---
PROCEDURE: Foot 3 View RT INDICATIONS: r/o fx after falls TECHNIQUE: 3 views of the foot were acquired. COMPARISON: None FINDINGS: Bones: No fractures or dislocations. No suspicious bony lesions. There is severe degenerative lucero ge with subluxation at the first MTP joint. Moderate scattered IP degenerative narrowing with arthrit is. Soft tissues: No tibiotalar joint effusion. Achilles tendon appears normal. IMPRESSION: No visualized acute fracture or dislocation. However, occult injury cannot be excluded. Recommend harini rt interval imaging follow-up in 7-10 days as clinically indicated for additional evaluation. Reviewed by: Bea Monk MD on 04/05/2020 5:12 PM PST Approved by: Bea Monk MD on 04/05/2020 5:12 PM PST Station ID: [id number]
--- NOTE | 2020-04-05 17:16 | CT Report ---
PROCEDURE: THORACIC SPINE WO INDICATIONS: pain after multiple falls; r/o fx TECHNIQUE: Noncontrast 3 mm thick sections acquired through the region of interest in the thoracic spine. Sagit maria m and coronal reformats were then constructed. For radiation dose reduction, the following was used : automated exposure control, adjustment of mA and/or kV according to patient size. COMPARISON: None. FINDINGS: Image quality: Excellent. Nonspecific periesophageal lymph nodes at the GE junction. There is possible esophageal mural thicken ing distally. L1 compression fracture with no definite change in height loss since 03/14/2020. The remaining vertebral body heights preserved. Scattered multilevel endplate spurring and diffuse fa cet arthropathy. Scattered vascular calcifications are present in the aorta. Diffuse osteopenia. IMPRESSION: Redemonstrated L1 compression fracture, grossly unchanged No other additional thoracic spine fracture seen. Diffuse osteopenia and spondylitic changes. Mildly prominent lymph nodes at the GE junction, technically nonspecific finding however there appear s to be distal esophageal wall thickening; consider further evaluation with upper endoscopy to exclud e esophageal malignancy as clinically warranted Reviewed by: Eduardo Garibay MD on 04/05/2020 5:14 PM PST Approved by: Eduardo Garibay MD on 04/05/2020 5:14 PM PST Station ID: [id number]
--- NOTE | 2020-04-05 17:19 | CT Report ---
PROCEDURE: LUMBAR SPINE WO INDICATIONS: pain after falls; r/o fx TECHNIQUE: Noncontrast 3 mm thick sections acquired from the T12 level to the sacrum. Sagittal and coronal refo rmats were constructed. For radiation dose reduction, the following was used: automated exposure co ntrol, adjustment of mA and/or kV according to patient size. COMPARISON: None. FINDINGS: Image quality: Excellent. Diffuse osteopenia. Unchanged appearance of L1 compression fracture. Additional L3 central compressio n fracture which is age indeterminate, with [id number] height loss. Grade 1 anterolisthesis of L5 on S1. Lumbosacral transitional vertebra is seen with left-sided partial sacralization and pseudoarthrosis. Alignment at the sacroiliac joints appears grossly intact. Scattered multilevel endplate spurring and diffuse facet arthropathy. Scattered vascular calcifications are present in the aorta. IMPRESSION: L1 compression fracture appears grossly unchanged since 03/14/2020 Additional mild to moderate central L3 compression fracture is age indeterminate. Please correlate cl inically to determine the acuity Spondylosis and facet arthropathy Reviewed by: Eduardo Garibay MD on 04/05/2020 5:18 PM PST Approved by: Eduardo Garibay MD on 04/05/2020 5:18 PM PST Station ID: [id number]
[2020-04-05] MEDS ORDERED: SODIUM CHLORIDE 0.9% 1,000 ML IV STA ×2 (17:27→17:58)
[2020-04-05 17:47] LABS: BILIRUBIN,URINE NEGATIVE (NEGATIVE); GLUCOSE, URINE (UA) NEGATIVE (NEGATIVE); KETONES,URINE (UA) NEGATIVE (NEGATIVE); LEUKOCYTE ESTERASE, URINE NEGATIVE (NEGATIVE); NITRITE,URINE NEGATIVE (NEGATIVE); OCCULT BLOOD,URINE TRACE-INTA (NEGATIVE); PROTEIN,URINE NEGATIVE (NEGATIVE); UROBILINOGEN,URINE 0.2 (NORMAL) E.U./dL (NORMAL)
[2020-04-05 17:49] LABS: CLARITY,URINE CLEAR (CLEAR)
[2020-04-05 19:12] VITALS: BP 164/79
== END 2020-04-05 19:40 | disposition home or self-care (01) ==
LOC: ED 15:42
DX: M48.56XA Collapsed vertebra, not elsewhere classified, lumbar region, initial encounter for fracture (principal); E86.0 Dehydration; R55 Syncope and collapse; R59.0 Localized enlarged lymph nodes; K22.8 Other specified diseases of esophagus; F03.90 Unspecified dementia, unspecified severity, without behavioral disturbance, psychotic disturbance, mood disturbance, and anxiety; Z79.82 Long term (current) use of aspirin; R07.81 Pleurodynia; M79.671 Pain in right foot; M54.5 Low back pain; M54.6 Pain in thoracic spine
CPT/HCPCS: 36415; 51701; 80053; 81001; 81003; 83690; 84484; 85025; 87086; 93005; 99285

== ENCOUNTER 2020-05-02 09:29 | Day surgery (SDC) | payer MEDICARE, OTHER ==
[2020-05-02] MEDS ORDERED: LACTATED RINGERS 1,000 ML IV ONE ×2 (10:06→13:51)
[2020-05-02 10:47] LABS: C. PNEUMONIAE- RESP PCR PANEL NOT DETECTED
[2020-05-02] MEDS ORDERED: ONDANSETRON 4 MG/2 ML VIAL IVP PRN (11:57)
[2020-05-02] MEDS ORDERED: MORPHINE 2 MG/ML CARPUJECT IVP PRN (11:57)
[2020-05-02] MEDS ORDERED: ATROPINE ABBOJECT 1 MG/10 ML SYRINGE IVP PRN (11:57)
[2020-05-02] MEDS ORDERED: fentaNYL 100 MCG/2 ML VIAL IVP PRN (11:57)
[2020-05-02] MEDS ORDERED: NALOXONE 0.4 MG/ML VIAL IVP PRN (11:57)
[2020-05-02] MEDS ORDERED: HYDROmorphone 0.5 MG/0.5 ML SYRINGE IVP PRN (11:57)
[2020-05-02] MEDS ORDERED: ePHEDrine 50 MG/ML VIAL IVP PRN (11:57)
[2020-05-02] MEDS ORDERED: METOCLOPRAMIDE 10 MG/2 ML VIAL IVP PRN (11:57)
--- NOTE | 2020-05-02 11:57 | ANESTHESIA ---
Pre-Anesthesia VS, & Labs - Diagnosis dysphagia, esophageal thickening - Procedure EGD Vital Signs: Temp Pulse Resp BP Pulse Ox 36.0 C L 81 16 134/72 H 97 05/02/20 10:07 05/02/20 10:07 05/02/20 10:07 05/02/20 10:07 05/02/20 10:07 Height: 5 ft 4 in Weight (kg): 75 kg Body Mass Index: 28.3 BMI Classification: Overweight - NPO >8 hours - Is Patient ?: No - Lab Results Lab results reviewed: Yes Home Medications and Allergies Aspirin [[place] Aspirin EC] 81 mg PO DAILY 08/31/19 Donepezil [Aricept] 5 mg PO DAILY 08/31/19 Levothyroxine Sodium [Synthroid] 100 mcg PO QDAC 08/31/19 Simvastatin 40 mg PO DAILY 08/31/19 Venlafaxine HCl [Venlafaxine HCl ER] 150 mg PO DAILY 08/31/19 Allergies/Adverse Reactions: Allergies Allergy/AdvReac Type Severity Reaction Status Date / Time No Known Drug Allergies Allergy Verified 08/31/19 21:49 Anes History & Medical History - Anesthetic History Anesthesia Complications: reports: No previous complications Family history of Anesthesia Complications: Denies Family history of Malignant Hyperthermia: Denies - Medical History Cardiovascular: reports: High cholesterol Pulmonary: reports: Shortness of breath Gastrointestinal: reports: None Urinary: reports: Retention, Other Neuro: reports: Dementia Musculoskeletal: reports: Chronic back pain Endocrine/Autoimmune: reports: HyPOthyroidism Skin: reports: None Smoking Status: Never smoker Exam General: Alert, Oriented x3, Cooperative, No acute distress Dental: WNL Mouth Openin Fingerbreadth Neck Mobility: Normal Mallampati classification: II Respiratory: Lungs clear, Normal breath sounds, No respiratory distress, No accessory muscle use Cardiovascular: Regular rate, Normal S1, Normal S2, No murmurs Plan Anesthesia Type: General, Total IV Consent for Procedure(s) Verified and Reviewed: Yes Code Status: Attempt Resuscitation ASA classification: 2-Mild systemic disease Is this case an emergency?: No
[2020-05-02] MEDS ORDERED: LACTATED RINGERS 1,000 ML IV SCH (12:00)
[2020-05-02] MEDS ORDERED: PROPOFOL 500 MG/50 ML 500 MG/50 ML VIAL ONE (12:11)
[2020-05-02] MEDS ORDERED: LIDO GARGLE 30 ML BOTTLE TOP ONE ×2 (12:59→13:26)
[2020-05-02] MEDS ORDERED: BENZOCAINE/TETRACAINE/BUTAMBEN 20 GM TOP ONE ×2 (13:00→13:26)
[2020-05-02] MEDS ORDERED: LIDO GARGLE 30 ML BOTTLE ONE (13:06)
[2020-05-02] MEDS ORDERED: LIDOCAINE-MPF 2% 5 ML VIAL ONE (13:12)
--- NOTE | 2020-05-02 13:52 | ANESTHESIA POST OP EVALUATION ---
Anesthesia Post Eval - Post Anesthesia Eval Vitals: Last Vital Signs Temp 36.0 C L 05/02/20 10:07 Pulse 81 05/02/20 10:07 Resp 16 05/02/20 10:07 BP 134/72 H 05/02/20 10:07 Pulse Ox 97 05/02/20 10:07 CV Function Including HR & BP: positive: Stable Pain Control: positive: Satisfactory Nausea & Vomiting: positive: Negative Mental Status: positive: Baseline Respiratory Status: Airway Patent Hydration Status: Satisfactory Anesthesia Complications: positive: None
[2020-05-02] MEDS ORDERED: ONDANSETRON 4 MG/2 ML VIAL ONE (14:08)
[2020-05-02 14:38] VITALS: BP 102/87
== END 2020-05-02 09:30 | disposition home or self-care (01) ==
LOC: SDS 09:29
PROVIDERS: ATTEND Surgery
PROC: 0DB78ZX Excision of Stomach, Pylorus, Via Natural or Artificial Opening Endoscopic, Diagnostic (ICD-10-PCS; 2020-05-02)
PROC: 0DB68ZX Excision of Stomach, Via Natural or Artificial Opening Endoscopic, Diagnostic (ICD-10-PCS; 2020-05-02)
PROC: 0DB28ZX Excision of Middle Esophagus, Via Natural or Artificial Opening Endoscopic, Diagnostic (ICD-10-PCS; 2020-05-02)
PROC: 0DB38ZX Excision of Lower Esophagus, Via Natural or Artificial Opening Endoscopic, Diagnostic (ICD-10-PCS; 2020-05-02)
PROC: 0DB48ZX Excision of Esophagogastric Junction, Via Natural or Artificial Opening Endoscopic, Diagnostic (ICD-10-PCS; 2020-05-02)
PROC: 0DB98ZX Excision of Duodenum, Via Natural or Artificial Opening Endoscopic, Diagnostic (ICD-10-PCS; principal; 2020-05-02 11:15)
DX: K22.8 Other specified diseases of esophagus (principal); R13.10 Dysphagia, unspecified; K44.9 Diaphragmatic hernia without obstruction or gangrene; F03.90 Unspecified dementia, unspecified severity, without behavioral disturbance, psychotic disturbance, mood disturbance, and anxiety; Z20.822 Contact with and (suspected) exposure to COVID-19; R59.0 Localized enlarged lymph nodes; E03.9 Hypothyroidism, unspecified
CPT/HCPCS: 43239; 87631; A9270; J7120; 0202U

== ENCOUNTER 2020-06-19 14:52 | Outpatient (CLI) | payer MEDICARE, OTHER ==
--- NOTE | 2020-06-19 16:34 | XRAY Report ---
PROCEDURE: Knee 3 View RT INDICATIONS: PAIN IN RIGHT KNEE TECHNIQUE: 3 views of the right knee(s) were acquired. COMPARISON: None. FINDINGS: Bones: No fractures or dislocations. No suspicious bony lesions. There is moderate medial and patellofemoral as well as mild to moderate lateral compartment narrowing . No erosions are identified. Soft tissues: No joint effusion. No suspicious soft tissue calcifications. IMPRESSION: Tricompartmental arthritic changes as above. Reviewed by: Bea Monk MD on 06/19/2020 4:33 PM PST Approved by: Bea Monk MD on 06/19/2020 4:33 PM PST Station ID: [id number]
== END 2020-06-19 14:53 | disposition home or self-care (01) ==
LOC: DI 14:52
PROVIDERS: ATTEND Physician Assistant
DX: M17.11 Unilateral primary osteoarthritis, right knee (principal)

== ENCOUNTER 2021-03-23 12:08 | Outpatient (CLI) | payer MEDICARE, OTHER | END 2021-03-23 12:09 | disposition home or self-care (01) | LOC: DI 12:08 | PROVIDERS: ATTEND Physician Assistant | DX: R06.01 Orthopnea (principal); R06.00 Dyspnea, unspecified; R53.83 Other fatigue; R42 Dizziness and giddiness; I49.3 Ventricular premature depolarization | CPT/HCPCS: 93306 ==

== ENCOUNTER 2021-03-23 13:00 | Outpatient (CLI) | payer MEDICARE, OTHER ==
--- NOTE | 2021-03-23 14:53 | XRAY Report ---
PROCEDURE: Chest 2 View X-Ray INDICATIONS: ORTHOPNEA,DYSPNEA,DIZZINESS,GIDDINESS,OTHER FATIGU TECHNIQUE: 2 view(s) of the chest. COMPARISON: Chest x-ray one view, 03/23/2020. FINDINGS: Surgical changes and devices: None. Lungs and pleura: No pleural effusions or pneumothorax. Lungs are clear. Mediastinum: Mediastinal contours are normal. Heart size is normal. Bones and chest wall: No suspicious bony abnormalities. Moderate compression fracture of L1 appears unchanged. Soft tissues appear unremarkable. IMPRESSION: 1. No acute cardiopulmonary disease. 2. Moderate chronic L1 compression fracture. Reviewed by: Pierre Lynch MD on 03/23/2021 2:51 PM PST Approved by: Pierre Lnych MD on 03/23/2021 2:51 PM [facility] Station ID: [id number]
== END 2021-03-23 13:01 | disposition home or self-care (01) ==
LOC: DI 13:00
PROVIDERS: ATTEND Physician Assistant
DX: R06.01 Orthopnea (principal); R06.00 Dyspnea, unspecified; R53.83 Other fatigue; R42 Dizziness and giddiness; M48.56XA Collapsed vertebra, not elsewhere classified, lumbar region, initial encounter for fracture
CPT/HCPCS: 93306

== ENCOUNTER 2021-06-20 22:35 | Outpatient (CLI) | payer MEDICARE, OTHER | END 2021-06-20 22:36 | disposition critical access hospital (66) | LOC: EMS 22:35 | DX: R06.02 Shortness of breath (principal) | CPT/HCPCS: A0425; A0427 ==

== ENCOUNTER 2021-06-20 23:02 | Emergency (ER) | payer MEDICARE, OTHER ==
--- NOTE | 2021-06-20 23:22 | ED Physician Documentation ---
History of Present Illness - Stated complaint Stated Complaint: SOA - Chief complaint Chief Complaint: Resp - History obtained from History obtained from: Patient, EMS - Additonal information Additional information: 86-year-old woman, with history of dementia, DNR/DNI in hospital per chart review from April 2019, presents with shortness of breath acute in onset this evening. Oxygen per EMS was 86% on room air improving to 95% on 15 L facemask. Patient was tachycardic in the 130s in the field. Patient intermittently responsive. Further history limited by patient acuity. Review of Systems Unable to obtain: Unresponsive PD PAST MEDICAL HISTORY - Past Medical History Cardiovascular: High cholesterol Respiratory: Shortness of breath Neuro: Dementia Endocrine/Autoimmune: HyPOthyroidism GI: None : Retention, Other HEENT: Other Psych: Depression Musculoskeletal: Chronic back pain Derm: None - Present Medications Home Medications: Ambulatory Orders Medication Instructions Recorded Confirmed Aspirin [[place] Aspirin EC] 81 mg PO DAILY 08/31/19 03/24/20 Donepezil [Aricept] 5 mg PO DAILY 08/31/19 03/24/20 Levothyroxine Sodium [Synthroid] 100 mcg PO QDAC 08/31/19 03/24/20 Simvastatin 40 mg PO DAILY 08/31/19 03/24/20 Venlafaxine HCl [Venlafaxine HCl 150 mg PO DAILY 08/31/19 03/24/20 ER] Saccharomyces Boulardii [Florastor] 250 mg PO BIDWM #10 capsule 03/26/20 cephALEXin [Keflex] 500 mg PO BID #10 capsule 03/26/20 - Allergies Allergies/Adverse Reactions: Allergies Allergy/AdvReac Type Severity Reaction Status Date / Time No Known Drug Allergies Allergy Verified 06/20/21 23:13 - Social History Does the pt smoke?: No Smoking Status: Never smoker PD ED PE NORMAL - Vitals Vital signs reviewed: Yes - General General: Other (sitting up in bed, gasping for air, stating "I can't breathe") - HEENT HEENT: Atraumatic, PERRL, EOMI - Neck Neck: Supple, no meningeal sign - Cardiac Cardiac: Other (tachycardic rate, regular rhythm) - Respiratory Respiratory: No respiratory distress, Clear bilaterally - Abdomen Abdomen: Non tender, Non distended - Derm Derm: Other (pale appearing) - Extremities Extremities: No deformity - Neuro Neuro: No motor deficit, No sensory deficit - Psych Psych: Other (ill appearing) Results - Vitals Vitals: Vital Signs - 24 hr 06/20/21 23:07 Temperature 36.6 C Heart Rate 78 Respiratory 28 H Rate Blood Pressure 145/96 H O2 Saturation 86 L Oxygen O2 Source Room air Oxygen Flow Rate 15 - Labs Labs: Laboratory Tests 06/20/21 23:15 Bld Gas Analysis Time 2324 Sample Site RIGHT RADIAL ABG pH 7.24 L ABG pCO2 27 L ABG pO2 174 H* ABG HCO3 11.4 L ABG Total CO2 12.2 L ABG O2 Saturation 99 H ABG Base Excess -14.3 L Giovani Test POSITIVE O2 Delivery Device NON REBREATHER MASK O2 Liters/Min 15.00 PD MEDICAL DECISION MAKING - ED course ED course: Confirmed with daughter Jennifer Garrett on patient arrival and confirmed she is DNR/DNI. patient placed on NRB. abg obtained. while preparing to place on bipap patient lost pulses and became asystolic on monitor. TOD 2326. Departure - Departure Disposition: 20 Clinical Impression: Respiratory distress, Lactic acidemia Condition: Critical
[2021-06-20 23:25] LABS: ABG PCO2 27 mmHg (34-45); ABG PH 7.24 (7.35-7.45)
[2021-06-20 23:26] LABS: ABG BASE EXCESS -14.3 mmol/L (-2.0-3.0); ABG HCO3 11.4 mmol/L (22.0-26.0); ABG OXYGEN SATURATION 99 % (94-98); ABG TCO2 12.2 MMOL/L (21.0-29.0); ALLEN TEST POSITIVE
[2021-06-20 23:27] LABS: ABG PO2 174 mmHg (80-100)
[2021-06-20 23:45] VITALS: BP 0/0
== END 2021-06-20 23:36 | disposition expired ==
LOC: EDUNIT# → ED 23:02 → SUPCPDRO 23:02 → ED 23:36
DX: R06.03 Acute respiratory distress (principal); E87.2 Acidosis; Z66 Do not resuscitate
CPT/HCPCS: 36600; 80053; 82803; 83690; 83880; 84484; 85025; 99283; 99285